=== PATIENT | female | born 1975 ===

== ENCOUNTER 2020-04-05 09:09 | Outpatient (REF) | payer OTHER, SELFPAY ==
--- NOTE | 2020-04-05 | MM_ITS ---
EXAMINATION: MM SCREENING DIGITAL BREAST TOMOSYNTHESIS, BILATERAL CLINICAL INFORMATION: Screening. Asymptomatic. The lifetime risk of breast cancer based on the Tyrer-Cuzick Model is 12%. COMPARISON: Outside 2D mammography images from [facility]: 02/27/2017 (bilateral), 11/22/2015 (right), 05/21/2015 (right). TECHNIQUE: Digital breast tomosynthesis is performed in both the craniocaudal and mediolateral oblique views along with computer-aided detection (CAD). Synthesized 2D images are generated from the tomosynthesis. Additional exaggerated left CC view is provided. FINDINGS: The breasts are heterogeneously dense, which may obscure small masses (ACR BI-RADS breast composition Category c). The right breast is unremarkable. There is no interval mass or architectural abnormality. Neither breast shows abnormal calcifications. The bilateral axilla and skin contours are unremarkable. The left breast has a 1.1 cm smooth mass posterior upper outer quadrant likely present on prior outside exam 2016 but better appreciated on current study with tomography. This may represent a cyst or fibroadenoma. Patient will be recalled for targeted ultrasound to fully characterize. MM/MM tomosynthesis screening BI IMPRESSION: 1. Left: Mass posterior upper outer left breast with smooth partly obscured margins, likely chronic, possibly cyst or fibroadenoma. 2. Right: No mammographic evidence of malignancy. ASSESSMENT: BI-RADS 0: Incomplete - Need Additional Imaging Evaluation RECOMMENDATION: 1. Targeted ultrasound left breast. 2. Radiology department staff will contact the patient for additional imaging. This patient's information was entered into a reminder system with a target due date for their next mammogram.
== END 2020-04-05 09:10 | disposition home or self-care (01) ==
LOC: HO.MAMMO 09:09
PROVIDERS: PCP Physician Assistant; Visit Provider Physician Assistant
DX: Z12.31 Encounter for screening mammogram for malignant neoplasm of breast (principal)
CPT/HCPCS: 77063; 77067

== ENCOUNTER 2020-04-17 09:01 | Outpatient (REF) | payer OTHER, SELFPAY ==
--- NOTE | 2020-04-17 09:05 | US_ITS ---
EXAMINATION: US DIAGNOSTIC ULTRASOUND BREAST, LEFT CLINICAL INFORMATION: Recall from screening for circumscribed mass posterior upper outer left breast likely chronic but better appreciated on recent exam with tomography. COMPARISON: Mammography 04/05/2020; outside 2D mammography 02/27/2017 ([facility]). TECHNIQUE: Ultrasound of the breast is performed with real-time baltazar scale imaging and color Doppler. Additional imaging also performed by radiologist. FINDINGS: There is a circumscribed macrolobulated mass corresponding to finding on mammography 2:00 position 7 cm from nipple measuring 1.1 x 0.7 x 0.5 cm. There is no increased or decreased through transmission of sound. In retrospect, finding is likely present on outside mammography 2017. This may represent a fibroadenoma. Follow-up in 6 months with targeted ultrasound is recommended to confirm stability. Results are discussed with the patient at time of visit. US/US breast LT limited IMPRESSION: Solid macrolobulated mass posterior upper outer left breast 1.1 cm, possibly fibroadenoma. In retrospect, finding likely present on outside mammography 2017. ASSESSMENT: BI-RADS 3: Probably Benign RECOMMENDATION: Targeted left breast ultrasound in 6 months. This patient's information was entered into a reminder system with a target due date for their next mammogram.
== END 2020-04-17 09:02 | disposition home or self-care (01) ==
LOC: HO.MAMMO 09:01
PROVIDERS: Visit Provider Physician Assistant
DX: N63.20 Unspecified lump in the left breast, unspecified quadrant (principal)
CPT/HCPCS: 76642

== ENCOUNTER 2020-10-14 08:53 | Outpatient (REF) | payer OTHER, SELFPAY ==
--- NOTE | ~2020-10-14 | US_ITS ---
EXAMINATION: US DIAGNOSTIC ULTRASOUND BREAST, RIGHT CLINICAL INFORMATION: Short interval six-month follow-up solid macrolobulated mass posterior upper outer left breast 1.1 cm, possibly fibroadenoma. TC score 12%. COMPARISON: Targeted ultrasound 04/17/2020, mammography 04/05/2020 and outside 2-D mammography 02/27/2017 ([facility]). TECHNIQUE: Ultrasound left breast is targeted to the upper outer quadrant. Grayscale imaging and color Doppler are performed without and with harmonics. FINDINGS: The macrolobulated mass is similar in size and contour and echogenicity to the prior ultrasound exam 04/17/2020. Measurements are approximately 0.9 x 0.8 x 0.5 cm. Prior measurements are 1.1 x 0.7 x 0.5 cm. The left mass will be reassessed with ultrasound at time of annual bilateral mammography, due within 6 months. Results are provided to the patient at time of visit by the technologist. US/US breast LT limited IMPRESSION: Stable macrolobulated mass posterior upper outer left breast similar to prior exam 04/05/2020. ASSESSMENT: BI-RADS 3: Probably Benign RECOMMENDATION: Targeted left breast ultrasound at time of annual bilateral mammography, due in 6 months. This patient's information was entered into a reminder system with a target due date for their next mammogram.
== END 2020-10-14 08:54 | disposition home or self-care (01) ==
LOC: HO.MAMMO 08:53
PROVIDERS: Visit Provider Physician Assistant
DX: R92.2 Inconclusive mammogram (principal)
CPT/HCPCS: 76642

== ENCOUNTER 2020-12-03 09:52 | Outpatient (REF) | payer OTHER, SELFPAY ==
[2020-12-03 10:25] LABS: Hemoglobin 14.4 g/dl (12.0-16.0); Mean Corpuscular HGB Conc 32.7 g/dl (31.0-35.0); Mean Corpuscular Hemoglobin 29.8 pg (27.0-33.0); Mean Corpuscular Volume 90.9 fL (80-98); Mean Platelet Volume 11.2 fL (9.4-12.3); Platelet Count 253 X10*3/uL (160-400); Red Blood Count 4.84 X10*6/uL (4.20-5.50); Red Cell Distribution Width 12.5 % (11.0-16.0); White Blood Count 7.6 X10*3/uL (4.8-10.8)
[2020-12-03 10:34] LABS: Estimated Average Glucose 105 mg/dL; Hemoglobin A1c % 5.3 %
[2020-12-03 10:51] LABS: Alanine Aminotransferase 31 U/L (0-31); Albumin Level 4.4 g/dL (3.5-5.0); Alkaline Phosphatase 70 U/L (39-117); Anion Gap 13 (12-20); Aspartate Amino Transferase 12 U/L (5-31); Bilirubin Total 1.4 mg/dL (0.0-1.0); Blood Urea Nitrogen 7 mg/dL (9-16); Calcium 9.5 mg/dL (8.4-10.2); Carbon Dioxide 25 mmol/L (22-29); Chloride 108 mmol/L (96-108); Estimated Glomerular Filt Rate > 60; Glucose Fasting 104 mg/dL (60-99); Potassium 4.5 mmol/L (3.3-5.1); Sodium 141 mmol/L (135-145); Total Protein 6.8 g/dL (6.5-8.0)
[2020-12-03 11:04] LABS: TSH reflex Free T4 0.68 uIU/mL (0.32-4.0)
== END 2020-12-03 09:53 | disposition home or self-care (01) ==
LOC: HO.LAB 09:52
PROVIDERS: PCP Physician Assistant; Visit Provider Physician Assistant
DX: Z13.29 Encounter for screening for other suspected endocrine disorder (principal); I10 Essential (primary) hypertension; R73.09 Other abnormal glucose
CPT/HCPCS: 36415; 80053; 83036; 84443; 85027

== ENCOUNTER 2021-04-07 10:28 | Outpatient (REF) | payer OTHER, SELFPAY ==
--- NOTE | ~2021-04-07 | MM_ITS ---
EXAMINATION: MM SCREENING DIGITAL BREAST TOMOSYNTHESIS, BILATERAL CLINICAL INFORMATION: Due for yearly. Probable fibroadenoma posterior upper outer left breast. Exam performed was performed as a screening. Follow-up targeted left breast ultrasound scheduled another day. The lifetime risk of breast cancer based on the Tyrer-Cuzick Model is 8%. COMPARISON: Mammography: 04/05/2020, outside mammography 02/27/2017 ([facility]). TECHNIQUE: Digital breast tomosynthesis is performed in both the craniocaudal and mediolateral oblique views along with computer-aided detection (CAD). Synthesized 2D images are generated from the tomosynthesis. FINDINGS: The breasts are heterogeneously dense, which may obscure small masses (ACR BI-RADS breast composition Category c). Parenchymal pattern is similar to prior exams. There is no developing density, interval mass, architectural abnormality. No abnormal calcifications. No significant changes. Skin contours are smooth. MM/MM tomosynthesis screening BI IMPRESSION: No significant changes from prior exams. ASSESSMENT: BI-RADS 2: Benign RECOMMENDATION: 1. Patient due for follow up targeted left breast ultrasound, appointment scheduled another day. 2. Bilateral mammography in 12 months. This patient's information was entered into a reminder system with a target due date for their next mammogram.
== END 2021-04-07 10:29 | disposition home or self-care (01) ==
LOC: HO.MAMMO 10:28
PROVIDERS: PCP Physician Assistant; Visit Provider Physician Assistant
DX: Z12.31 Encounter for screening mammogram for malignant neoplasm of breast (principal)
CPT/HCPCS: 77063; 77067

== ENCOUNTER 2021-04-10 07:56 | Outpatient (REF) | payer OTHER, SELFPAY ==
--- NOTE | ~2021-04-10 | US_ITS ---
EXAMINATION: US DIAGNOSTIC ULTRASOUND BREAST, LEFT CLINICAL INFORMATION: Probable fibroadenoma posterior upper outer left breast for follow-up surveillance. Age 45. TC score 8%. COMPARISON: Ultrasound 10/14/2020, 04/17/2020, mammography 04/07/2021, 04/05/2020 (BI-RADS 0). TECHNIQUE: Ultrasound left breast is targeted to the upper outer quadrant. Grayscale imaging and color Doppler are performed without and with harmonics. FINDINGS: The circumscribed nodule 2:00 position 7 cm from nipple shows no interval growth. Current measurements are 0.8 x 0.6 x 0.4 cm. Prior measurements 0.9 x 0.8 x 0.5 cm on ultrasound 10/14/2020 and 1.1 x 0.7 x 0.5 cm on ultrasound 04/17/2020. Finding will be reassessed with ultrasound at next bilateral mammography appointment due in 12 months to conclude long-term surveillance. Results are provided to the patient at time of visit by the technologist. US/US breast LT limited IMPRESSION: Probable fibroadenoma upper outer left breast stable to slightly decreased. ASSESSMENT: BI-RADS 3: Probably Benign RECOMMENDATION: Diagnostic left ultrasound at time of next bilateral mammography, due in 12 months. This patient's information was entered into a reminder system with a target due date for their next mammogram.
== END 2021-04-10 07:57 | disposition home or self-care (01) ==
LOC: HO.MAMMO 07:56
PROVIDERS: Visit Provider Physician Assistant
DX: R92.2 Inconclusive mammogram (principal)
CPT/HCPCS: 76642

== ENCOUNTER 2021-12-06 08:54 | Outpatient (REF) | payer OTHER, SELFPAY ==
[2021-12-06 09:30] LABS: Hematocrit 43.3 % (37.0-47.0); Hemoglobin 14.1 g/dl (12.0-16.0); Mean Corpuscular HGB Conc 32.6 g/dl (31.0-35.0); Mean Corpuscular Hemoglobin 28.9 pg (27.0-33.0); Mean Corpuscular Volume 88.7 fL (80.0-98.0); Mean Platelet Volume 11.3 fL (9.4-12.3); Platelet Count 272 X10*3/uL (160-400); Red Blood Count 4.88 X10*6/uL (4.20-5.50); Red Cell Distribution Width 12.8 % (11.0-16.0); White Blood Count 7.7 X10*3/uL (4.8-10.8)
[2021-12-06 09:48] LABS: Alanine Aminotransferase 23 U/L (0-31); Albumin Level 4.3 g/dL (3.5-5.0); Alkaline Phosphatase 62 U/L (39-117); Anion Gap 14 (12-20); Aspartate Amino Transferase 12 U/L (5-31); Bilirubin Total 2.1 mg/dL (0.0-1.0); Blood Urea Nitrogen 7 mg/dL (9-16); Calcium 8.7 mg/dL (8.4-10.2); Carbon Dioxide 20 mmol/L (22-29); Chloride 110 mmol/L (96-108); Estimated Glomerular Filt Rate > 60; Glucose Fasting 101 mg/dL (60-99); Potassium 4.2 mmol/L (3.3-5.1); Sodium 140 mmol/L (135-145); Total Protein 6.6 g/dL (6.5-8.0)
== END 2021-12-06 08:55 | disposition home or self-care (01) ==
LOC: HO.LAB 08:54
PROVIDERS: PCP Physician Assistant; Visit Provider Physician Assistant
DX: Z13.29 Encounter for screening for other suspected endocrine disorder (principal); R73.09 Other abnormal glucose
CPT/HCPCS: 36415; 80053; 84443; 85027

== ENCOUNTER → 2022-01-06 08:59 | Outpatient (BNVA) | payer OTHER, SELFPAY | PROVIDERS: PCP Physician Assistant; Referring Provider Physician Assistant; Visit Provider Physician Assistant | DX: Z01.818 Encounter for other preprocedural examination (principal); K62.5 Hemorrhage of anus and rectum; Z80.0 Family history of malignant neoplasm of digestive organs | CPT/HCPCS: 99202; 99212 ==

== ENCOUNTER 2022-04-09 13:57 | Outpatient (REF) | payer OTHER, SELFPAY ==
--- NOTE | ~2022-04-09 | MM_ITS ---
EXAMINATION: MM DIAGNOSTIC DIGITAL BREAST TOMOSYNTHESIS, BILATERAL US DIAGNOSTIC ULTRASOUND BREAST, LEFT CLINICAL INFORMATION: Due for yearly. Also follow-up probable fibroadenoma posterior upper outer left breast. The lifetime risk of breast cancer based on the Tyrer-Cuzick Model is 9%. COMPARISON: Mammography: 04/07/2021, 04/05/2020 (BI-RADS 0), outside mammography 02/27/2017 ([facility]); targeted left breast ultrasound 04/17/2020 (BI-RADS 3), 10/14/2020, 04/10/2021. TECHNIQUE: Digital breast tomosynthesis is performed in both the craniocaudal and mediolateral oblique views along with computer-aided detection (CAD). Synthesized 2D images are generated from the tomosynthesis. Ultrasound left breast is targeted to the upper outer quadrant using grayscale imaging and color Doppler without and with harmonics. FINDINGS: The breasts are heterogeneously dense, which may obscure small masses (ACR BI-RADS breast composition Category c). The parenchymal pattern is similar to prior studies. There is no developing density or interval architectural abnormality. No abnormal calcifications. Subtle nodular asymmetry posterior upper outer breast in area of suspected fibroadenoma is stable since 2019 and likely present on remote outside exam 2016. The axilla are unremarkable. The skin contours are smooth. Ultrasound demonstrates circumscribed macrolobulated nodule upper outer quadrant similar in size and contour and echogenicity to prior studies. No significant changes from multiple prior exams. Finding is now considered to be benign. Results are discussed with the patient at time of visit. MM/MM tomosynthesis diagnostic BI IMPRESSION: -No mammographic evidence of malignancy. 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 ASSESSMENT: BI-RADS 2: Benign RECOMMENDATION: Routine annual mammography screening. This patient's information was entered into a reminder system with a target due date for their next mammogram.
== END 2022-04-09 13:58 | disposition home or self-care (01) ==
LOC: HO.MAMMO 13:57
PROVIDERS: Visit Provider Physician Assistant
DX: R92.2 Inconclusive mammogram (principal)
CPT/HCPCS: 76642; 77062; 77066

== ENCOUNTER 2022-12-14 07:52 | Outpatient (AMB) | payer SELFPAY ==
[2022-12-14 08:06] VITALS: BP 102/68; PULSE 83; O2SAT 98; BMI 26.4
--- NOTE | 2022-12-14 08:06 | MHC.PC.OV ---
Vital Signs 12/14/22 08:06 Height 5 ft 1 in Weight 140 lb BMI 26.4 BP 102/68 Blood Pressure Location Rt brachial Position Sitting Pulse 83 Pulse Source Pulse Oximeter Pulse Oximetry (%) 98 Oxygen Delivery Method Room Air Intake Visit Reasons: PE Allergies cefazolin [From ANCEF] Allergy (Intermediate, Verified 12/14/22 08:18) HIVES codeine [CODEINE] Allergy (Intermediate, Verified 12/14/22 08:18) SWELLING Cephalosporins Allergy (Unknown, Verified 12/14/22 08:18) yolanda fluticasone [From Flovent Diskus] Adverse Reaction (Mild, Verified 12/14/22 08:18) oral thrush Medication List - Last Reconciled 12/14/22 by Aditya Daniels PA-C albuterol sulfate 90 mcg/actuation 1 puff PO Q4H PRN 30 days bisacodyl (Dulcolax (bisacodyl)) 10 mg (2 x 5 mg) PO ONCE 1 day fluticasone propionate 110 mcg/actuation (Flovent HFA) 1 puff inhalation BID 30 days polyethylene glycol 3350 (Miralax) 238 grams PO ONCE 1 day Tobacco use date assessed: 12/14/22 Dental Screening Dental Screen Date: 12/14/22 Did you have a dental visit in the last 12 months?: No Did you have a dental problem in the last 6 months where you did not have access to dental care?: No Was dental information given to patient?: No HPI PE HPI Details Patient is a 47 year female here today for annual physical.? Patient has a past medical history significant for asthma, depression. Mild persistent asthma: Has been fairly well controlled with p.r.n. use of albuterol inhaler and daily use of Flovent. She reports some exacerbation in her asthma during the spring season..? Also has stopped using singular due to his rebound affect. 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 .. VAccine: UTD COVID Vac, up-to-date with Tdap. .. Mammogram:? Diagnostic mammogram done in March 2022 Colorectal cancer screening: She is due for colonoscopy has had initial visit with GI Laboratory Tests 12/03/20 12/03/20 12/03/20 10:05 10:05 10:05 RBC 4.84 Creatinine 0.87 Fasting Glucose 104 H Hemoglobin A1c % 5.3 12/06/21 12/06/21 09:05 09:05 RBC 4.88 Creatinine 0.78 Fasting Glucose 101 H Hemoglobin A1c % ?? PFSH Surgical History History of section History of cholecystectomy History of endometrial ablation History of partial hysterectomy History of tubal ligation Family History Father Esophageal cancer Mother Hypertension Maternal Aunt Breast cancer Family/Other Breast cancer Colon cancer Sister Mental health disorder Substance use disorder Social History (Updated 12/14/22 @ 08:25 by Aditya Daniels PA-C) Housing: House Alcohol intake: never Patient Tobacco Use Status: Never used Tobacco e-Cigarette/Vaping Use: Never Used Current occupational status: employed Current occupation: [employer]- [employer] Cognitive needs: No Hearing needs: No Vision needs: No Questionnaire PHQ-9 Over the last 2 weeks, how often have you been bothered by any of the following problems? 1. Little interest or pleasure in doing things: not at all 2. Feeling down, depressed, or hopeless: not at all 3. Trouble falling or staying asleep, or sleeping too much: not at all 4. Feeling tired or having little energy: not at all 5. Poor appetite or overeating: not at all 6. Feeling bad about yourself - or that you are a failure or have let yourself or your family down: not at all 7. Trouble concentrating on things, such as reading the newspaper or watching television: not at all 8. Moving or speaking so slowly that other people could have noticed. Or the opposite - being so fidgety or restless that you have been moving around a lot more than usual: not at all 9. Thoughts that you would be better off or of hurting yourself in some way: not at all Total score: 0 Depression Screening Interpretation: Negative 05405 - PHQ-9 Billing: Yes Source: Developed by Drs. Tulio Goodwin, Senait Rucker, Job Marroquin and colleagues, with an educational neha from [employer]. Thrive Questionnaire Date Thrive assessed: 12/14/22 I am a: Patient What is your living situation today?: I have a steady place to live Within the past 12 months, did the food you bought not last and you didn't have the money to get more?: Never true Within the past 12 months, did you worry whether your food would run out before you got money to buy more?: Never true Do you have trouble paying for medicines?: No Do you have trouble getting transportation to medical appointments?: No Do you have trouble paying your heating and electricity bill?: No Do you have trouble taking care of your child, family member or friend?: No Do you have trouble with day-to-day activities such as bathing, preparing meals, shopping, managing finances, etc.?: No Are you currently unemployed and looking for a job?: No Are you interested in more education?: No Currently or been in a relationship where the following occur: no concerns reported AUDIT C Alcohol Use Questionnaire (AUDIT-C) 1. How often do you have a drink containing alcohol?: Never 3. How often do you have six or more drinks on one occasion?: Never Total Score: 0 MADHAV-7 AMB Questionnaire MADHAV-7 Date MADHAV - 7 assessed: 12/14/22 Feeling nervous, anxious, or on edge: 0 = Not at all Not being able to stop or control worryin = Not at all Worrying too much about different things: 0 = Not at all Trouble relaxin = Not at all Being so restless that it is hard to sit still: 0 = Not at all Becoming easily annoyed or irritable: 0 = Not at all Feeling afraid as if something awful might happen: 0 = Not at all Total MADHAV-7 score (0-4 normal; 5-9 mild; 10-14 moderate; 15-21 severe): 0 Source: Developed by Drs. Tulio Goodwin, Senait Rucker, Job Marroquin and colleagues, with an educational neha from [employer]. MADHAV-7 Assessment Billing MADHAV-7 Assessment Tool: MADHAV-7 Assessment 57667 ACT Questionnaire In the past 4 weeks, how much of the time did your asthma keep you from getting as much done at work, school or at home?: None of the time During the past 4 weeks, how often have you had shortness of breath?: 1-2 times a week During the past 4 weeks, how often did your asthma symptoms wake you up at night or earlier than usual in the morning?: Not at all During the past 4 weeks, how often have you had to use your rescue inhaler or nebulizer medication?: Not at all How would you rate your asthma control during the past 4 weeks?: Completely controlled ACT Interpretation: Negative Score: 24 Review of Systems Const Denies body aches, Denies chills, Denies excessive sweating, Denies fatigue, Denies fever(s) and Denies headache(s) Eyes Denies blurry vision ENT Denies dysphagia, Denies vertigo, Denies dizziness, Denies headache(s), Denies hearing loss and Denies tinnitus Card Denies chest pain, Denies chest pain with activity, Denies syncope, Denies irregular heart rhythm and Denies dyspnea Resp Denies chest congestion, Denies cough, Denies hemoptysis, Denies dyspnea and Denies wheezing GI Denies abdominal pain, Denies melena, Denies hematochezia, Denies coffee ground emesis, Denies dysphagia, Denies diarrhea, Denies nausea and Denies vomiting Denies urinary frequency, Denies dysuria, Denies urinary hesitancy and Denies urinary urgency Musc Denies arthralgias, Denies limited range of motion, Denies muscle cramps and Denies muscle weakness Skin/Breast Denies rash and Denies skin ulcer Neuro Denies Abnormal speech present, Denies confusion, Denies vertigo, Denies dizziness, Denies syncope, Denies headache(s), Denies memory loss and Denies seizure-like activity Psych Denies anxiety, Denies confusion, Denies depression, Denies memory loss, Denies panic attacks and Denies paranoia Endo Denies excessive sweating, Denies fatigue, Denies flushing, Denies polydipsia and Denies polyuria Aller/Immun Denies wheezing Physical exam (Primary Care) Vital Signs: Last Vital Signs Pulse 83 12/14/22 08:06 BP 102/68 12/14/22 08:06 Pulse Ox 98 12/14/22 08:06 Oxygen Delivery Method Room Air 12/14/22 08:06 BMI result Body Mass Index 26.4 Tobacco/Smoking Status: Tobacco use Status Tobacco use date assessed 12/14/22 12/14/22 08:15 Patient Tobacco Use Status Never used Tobacco 12/14/22 08:15 e-Cigarette/Vaping Use Never Used 12/14/22 08:15 PHQ-9: PHQ-9 Score PHQ-9: Total score 0 12/14/22 08:15 Depression Screening Interpretation: Negative Thrive Assessment: Date of Thrive Assessment Date Thrive assessed 12/14/22 12/14/22 08:15 Currently or been in a relationship where the following occur: no concerns reported Const General: cooperative, comfortable, no acute distress, alert and awake; No confusion Orientation/consciousness: oriented to person, oriented to place, patient oriented x3 and No confusion HENMT Head: Yes normocephalic Ears: external ears normal and TM's normal bilaterally Face and sinus: No sinus tenderness Mouth: Normal oral and palatal mucosa present and tongue normal Teeth and gingiva: dentition normal and gingiva normal Throat: Yes posterior oropharynx normal, Yes tonsils normal and Yes uvula midline Eyes Conjunctivae: conjunctivae normal Sclerae: sclerae normal Pupils: Equal, round and reactive pupils present EOM: EOMs intact bilaterally Direct Ophthalmoscopy: No no photophobia Neck Neck: Yes no lymphadenopathy, No tender and Yes no JVD Thyroid: Thyroid normal Carotids: no bruits Chest Chest palpation & inspection: no tenderness Resp Effort & Inspection: normal respiratory effort, no audible wheezes, not labored and no stridor Auscultation: no crackles, no rales, no rhonchi and no wheezes Cardio Jugular venous distension: no JVD Rate: regular rate, not bradycardic and not tachycardic Rhythm: regular rhythm Bruits: no carotid bruits Peripheral pulses: Peripheral pulses 2+ throughout GI Inspection: Yes normal to inspection, No abdominal wall ecchymosis and No visible herniation Palpation (GI): Soft to palpation, nontender, no guarding, not rigid and No hepatosplenomegaly present Auscultation: normoactive bowel sounds General: Yes no CVA tenderness Back/Spine/Pelvis Back: no CVA tenderness and No back tenderness Cervical Spine: cervical ROM normal Thoracic/Lumbar Spine: thoracic and lumbar spine normal to inspection, straight leg raise negative bilaterally, No thoraco-lumbar ROM limited and No lumbar spinal tenderness Skin Lesions: no lesions Rashes: no rashes Wounds: no wounds Neuro General: oriented to person, oriented to place, patient oriented x3, CN's II-XI intact bilaterally and No confusion Cranial nerves: Yes Equal, round and reactive pupils present and Yes Normal accommodation reflex present Cognition (Neuro): normal cognition Speech: No Abnormal speech present Gait exam (Neuro): Normal gait present Motor exam (neuro): 5/5 motor strength present throughout Extrem Right upper extremity: full ROM; no cyanosis Left upper extremity: full ROM; no cyanosis Right lower extremity: no edema Left lower extremity: no edema Psych Appearance: grossly normal Mental Status: mental status grossly normal Affect: normal affect Attitude: cooperative Thought process: Normal thought process present Assessment and Plan Assessment & Plan (1) Annual physical exam: Code(s): Z00.00 - Encounter for general adult medical examination without abnormal findings (2) Impaired glucose metabolism: Code(s): R73.09 - Other abnormal glucose Plan: Patient continues to have slightly elevated fasting blood sugar. Will continue work on lifestyle modifications to reduce sugar and carbohydrates in her diet. (3) Colon cancer screening: Comment: Index screening colonoscopy with Code(s): Z12.11 - Encounter for screening for malignant neoplasm of colon Plan: Need for colon cancer screening. Awaiting scheduling (4) Asthma: Code(s): J45.909 - Unspecified asthma, uncomplicated Qualifiers: Asthma severity: mild Asthma persistence: intermittent Asthma complication type: uncomplicated Qualified Code(s): J45.20 - Mild intermittent asthma, uncomplicated Plan: Patient's asthma has been fairly well controlled with p.r.n. use of her albuterol inhaler and daily use of her Flovent. Did have trouble with her asthma in the spring and increased her use of albuterol inhaler to time. Otherwise denies any asthma exacerbations or nighttime awakenings with asthma symptoms recently. Orders: Orders Comprehensive [place]. Panel Fast Today R73.09 - Other abnormal glucose Medications: Refilled albuterol sulfate 90 mcg/actuation 1 puff PO Q4H 30 days PRN 8.5 grams 3RF shortness of breath or wheezing J45.20 - Mild intermittent asthma, uncomplicated fluticasone propionate 110 mcg/actuation (Flovent HFA) 1 puff inhalation BID 30 days 12 grams 3RF J45.20 - Mild intermittent asthma, uncomplicated Coding Level of Care Code Est Pt Prev Care 40-64y(75162) Diagnoses Annual physical exam Z00.00 Impaired glucose metabolism R73.09 Colon cancer screening Z12.11 Asthma J45.20 Asthma severity: mild Asthma persistence: intermittent Asthma complication type: uncomplicated Additional Codes MADHAV-7 Assessment Billing - MADHAV-7 Assessment Tool: MADHAV-7 Assessment [id number] ([id number])
== END 2022-12-14 08:43 | disposition home or self-care (01) ==
PROVIDERS: PCP Physician Assistant; Visit Provider Physician Assistant
DX: Z00.00 Encounter for general adult medical examination without abnormal findings (principal); R73.09 Other abnormal glucose; Z12.11 Encounter for screening for malignant neoplasm of colon; J45.20 Mild intermittent asthma, uncomplicated
CPT/HCPCS: 99396

== ENCOUNTER 2023-01-16 07:35 | Outpatient (REF) | payer OTHER, SELFPAY ==
[2023-01-16 09:01] LABS: Alanine Aminotransferase 14 U/L (0-31); Albumin Level 4.4 g/dL (3.5-5.0); Alkaline Phosphatase 62 U/L (39-117); Anion Gap 14 (12-20); Aspartate Amino Transferase 13 U/L (5-31); Bilirubin Total 1.3 mg/dL (0.0-1.0); Blood Urea Nitrogen 8 mg/dL (9-16); Calcium 9.4 mg/dL (8.4-10.2); Carbon Dioxide 23 mmol/L (22-29); Chloride 108 mmol/L (96-108); Estimated Glomerular Filt Rate > 60; Glucose Fasting 108 mg/dL (60-99); Sodium 141 mmol/L (135-145); Total Protein 7.1 g/dL (6.5-8.0)
== END 2023-01-16 07:36 | disposition home or self-care (01) ==
LOC: HO.LAB 07:35
PROVIDERS: PCP Physician Assistant; Visit Provider Physician Assistant
DX: R73.09 Other abnormal glucose (principal)
CPT/HCPCS: 36415; 80053

== ENCOUNTER 2023-03-02 11:02 | Day surgery (SDC) | payer OTHER, SELFPAY ==
[2023-02-26 10:34] VITALS: BMI 26.4
--- NOTE | 2023-03-01 09:13 | HO.ANESPROP2 ---
HPI - Anesthesia Eval Consult details Narrative: 47yo F for Upper Endoscopy and Colonoscopy PMFSH Active Problems Active Problems: All Active Problems (Updated 01/06/22 @ 10:35 by Tashia Pedroza PA-C) Family history of GI tract cancer (Acute) Colon cancer screening (Acute) Cervical cancer screening (Acute) Screening for hypothyroidism (Acute) Annual physical exam (Acute) Screening for hypothyroidism (Acute) Asthma (Acute) Peripheral neuropathy (Acute) Impaired glucose metabolism (Acute) Past Medical History Medical History Asthma Peripheral neuropathy Family History Family History Father Esophageal cancer Mother Hypertension Maternal Aunt Breast cancer Family/Other Breast cancer Colon cancer Sister Mental health disorder Substance use disorder Surgical History Surgical History (Updated 03/09/23 @ 10:18 by Katelynn Coy) History of esophagogastroduodenoscopy (EGD) Hx of colonoscopy History of tubal ligation History of cholecystectomy History of endometrial ablation History of partial hysterectomy History of section Social History Social History Housing: House Alcohol intake: never Patient Tobacco Use Status: Former Tobacco user Tobacco use type: Cigarette e-Cigarette/Vaping Use: Never Used Current occupational status: employed Current occupation: [employer] Cognitive needs: No Hearing needs: No Vision needs: No Meds Allergies Allergy/AdvReac Type Severity Reaction Status Date / Time cefazolin [From ANCEF] Allergy Intermediate HIVES Verified 12/14/22 08:18 codeine [CODEINE] Allergy Intermediate SWELLING Verified 12/14/22 08:18 Cephalosporins Allergy Unknown yolanda Verified 12/14/22 08:18 fluticasone AdvReac Mild oral thrush Verified 12/14/22 08:18 [From Flovent Diskus] Exam Exam Date and Time: March 01, 2023 0913 Height,Weight and Vital Signs: Height 5 ft 1 in Weight 63.503 kg Pertinent Lab Results Pertinent Lab Results: Laboratory Tests 12/06/21 01/16/23 09:05 07:59 WBC 7.7 Hgb 14.1 Hct 43.3 Plt Count 272 Sodium 141 Potassium 4.0 Chloride 108 Carbon Dioxide 23 BUN 8 L Creatinine 0.86 Assessment and Plan Assessment Anesthesia Assessment: Chart Reviewed
[2023-03-02 11:25] VITALS: BP 146/93; PULSE 94; RESP 16; TEMP 36.8; O2SAT 97
[2023-03-02] MEDS: Lactated Ringers 1,000 ML 100 ML IVCONT (11:35)
--- NOTE | 2023-03-02 11:50 | MHC.SHP ---
Pre-Procedural Eval Section A Date of Service: 03/02/23 Section B Chief Complaint: Fam hx of esophageal ca and screening for CRC Details of Present Illness: Surg hx History of section History of cholecystectomy History of endometrial ablation History of partial hysterectomy History of tubal ligation Relevant Family History (Specify if Yes): Yes Relevant Social History: None Present Medications: see Short Stay Collaborative assessment Medical History: No relevant PMH History of Previous Operations: Relevant previous surgery/procedure and date(s) Allergies: Allergies Allergy/AdvReac Type Severity Reaction Status Date / Time cefazolin [From ANCEF] Allergy Intermediate HIVES Verified 12/14/22 08:18 codeine [CODEINE] Allergy Intermediate SWELLING Verified 12/14/22 08:18 Cephalosporins Allergy Unknown yolanda Verified 12/14/22 08:18 fluticasone AdvReac Mild oral thrush Verified 12/14/22 08:18 [From Flovent Diskus] Review of Systems Review of Systems Comment: 10 point ROS negative Exam Exam Comment: Gen appear: No acute distress HEENT: no icterus Chest: No overt resp distress Abd: soft, nontender, nondistended Psych: Stable affect, answering questions appropriately Neuro: A/Ox3 noted to move all extremities spontaneously Ext: no peripheral edema Plan I have reviewed the history and physical and performed a pertinent physical examination on my patient. No changes have occurred unless specified. Time Spent With Patient Time: Total time managing care of this patient today ____ minutes.
--- NOTE | 2023-03-02 12:26 | P.CONAN_ITS ---
[facility] Active Problems Active Problems: All Active Problems (Updated 03/01/23 @ 09:14 by Xin Naylor NP) Family history of GI tract cancer (Acute) Colon cancer screening (Acute) Cervical cancer screening (Acute) Screening for hypothyroidism (Acute) Annual physical exam (Acute) Screening for hypothyroidism (Acute) Impaired glucose metabolism (Acute) Past Medical History Medical History Asthma Peripheral neuropathy Patient : No Family History Family History Father Esophageal cancer Mother Hypertension Maternal Aunt Breast cancer Family/Other Breast cancer Colon cancer Sister Mental health disorder Substance use disorder Surgical History Surgical History History of tubal ligation History of cholecystectomy History of endometrial ablation History of partial hysterectomy History of section Social History Social History Housing: House Alcohol intake: never Patient Tobacco Use Status: Former Tobacco user Tobacco use type: Cigarette e-Cigarette/Vaping Use: Never Used Use of substances other than those prescribed or required for medical reasons: No Are you DNR?: No Advance Directives: No Advance Directives Information Provided: Yes Current occupational status: employed Current occupation: [employer] Cognitive needs: No Hearing needs: No Vision needs: No Meds Allergies Allergy/AdvReac Type Severity Reaction Status Date / Time cefazolin [From ANCEF] Allergy Intermediate HIVES Verified 12/14/22 08:18 codeine [CODEINE] Allergy Intermediate SWELLING Verified 12/14/22 08:18 Cephalosporins Allergy Unknown yolanda Verified 12/14/22 08:18 fluticasone AdvReac Mild oral thrush Verified 12/14/22 08:18 [From Flovent Diskus] Active Medications: Current Medications Albuterol Sulfate (Albuterol Sulfate (0.083%) 2.5 Mg/3 Ml Vial.Neb) 2.5 mg INHALE ONCE PRN PRN Reason: Shortness of Breath/Wheezing Lactated Ringer's (Lr) 1,000 mls @ 100 mls/hr IVCONT .Q10H JENNIFER Last Admin: 03/02/23 11:35 Dose: 100 mls/hr Exam Exam Date and Time: March 02, 2023 1226 Height,Weight and Vital Signs: Height 5 ft 1 in Weight 63.503 kg Last Vital Signs Temp 98.2 F 03/02/23 11:25 Pulse 94 03/02/23 11:25 Resp 16 03/02/23 11:25 BP 146/93 H 03/02/23 11:25 Pulse Ox 97 03/02/23 11:25 O2 Del Method Room Air 03/02/23 11:25 Airway Mallampati Class: II TM Dist: >3cm Neck ROM: Full Heart: RRR Lungs: CTA Assessment and Plan Assessment Anesthesia Assessment: Anesthesia Plan Discussed Final Anesthetic Review ASA Class: II Final Preanesthetic Review: Meds/Allgs Chart Reviewed, Consent Obtained/Reviewed and Anes Risks/Benef Reviewed Patient Risk: Low Procedure Risk: Low Anesthetic Plan Anesthetic Plan: MAC: Disposition: Standard PACU
--- NOTE | 2023-03-02 13:11 | P.OP_ITS ---
Operative Note Operative Note Date of Service: 03/02/23 Narrative: Procedure:?Esophagogastroduodenoscopy and colonoscopy Endoscopist:?Janene Coronel MD Indication:?Family hx of esophageal ca, and CRC screening Anesthesia Provider:?Keturah Ramires CRNA Anesthesia Type:?MAC Instrument:?Olympus GIF-H190, PCF-H190L EGD Procedure:?? The procedure, indications, preparation and potential complications were reviewed with the patient who indicated understanding and gave written informed consent to proceed. A physical exam was performed. The endoscope was introduced through the mouth, and advanced to the second part of duodenum. The mucosa was carefully examined on slow withdrawal of the endoscope. There were no immediate complications. Patient tolerated the procedure well. EGD Findings:? * Esophagus:? Normal esophageal mucosa was noted. The Z line is at 40 cm. * Stomach:? Normal gastric mucosa was noted. Retroflexion performed in the fundus. * Duodenum:? Normal duodenal mucosa noted to the extent examined. Colonoscopy Procedure:? The patient was then turned for the colonoscopy. A digital rectal exam was performed which was normal.? A distal attachment cap was affixed to the tip of the scope and the colonoscope was then inserted through the anus and advanced through the colon to the cecum at 75 cm and terminal ileum. Appendiceal orifice and ileocecal valve were identified. Mucosa was carefully examined under high definition white light as the instrument was slowly withdrawn in a retrograde panoramic fashion. Retroflexion was performed in rectum. The procedure was mildly difficult due to looping in sigmoid colon which required some left lower quadrant lift to intubate the hepatic flexure. There were no immediate obvious complications. The quality of the prep was BBPS: 2+2+2 = adequate Withdrawal time: 13 minutes Limitations: No limitation. Findings: Mucosa: Normal mucosa to cecum and terminal ileum. Protruding lesions: * 1 sessile polyp of size 5 mm in ascending colon. Cold snare polypectomy was performed. The polyp was completely removed and retrieved. * Medium internal hemorrhoids without stigmata of recent bleeding. Excavated lesions: * Scattered diverticulosis of sigmoid colon. Impression: 1. Normal esophagus 2. Normal stomach 3. Normal duodenum 4. Normal colon and terminal ileum mucosa 5. 1 polyp removed 6. Internal hemorrhoids 7. Diverticulosis Recommendations:?? * Await pathology results. * Due to prep quality, recommend repeat colonoscopy in 5 years regardless of the path
[2023-03-02 13:13] VITALS: BP 103/75; PULSE 80; RESP 16; TEMP 36.9; O2SAT 99
[2023-03-02 13:28] VITALS: BP 114/78; PULSE 71; RESP 16; TEMP 36.9; O2SAT 99
--- NOTE | 2023-03-02 13:48 | HO.POSTANES ---
Post Anesthesia Evaluation Post Anesthesia Evaluation Date of Service: 03/02/23 Vital Signs: Vital Signs Temp Pulse Resp BP Pulse Ox O2 Del Method 03/02/23 13:28 98.5 F 71 16 114/78 99 Room Air 03/02/23 13:13 98.5 F 80 16 103/75 99 Room Air 03/02/23 11:25 98.2 F 94 16 146/93 H 97 Room Air Anesthesia: Monitored Mental Status: Awake Pain Control: Satisfactory Nausea/Vomiting: None Hydration: Adequate Anesthesia-Related Issues: No Anes. Related Issues
== END 2023-03-02 14:26 | disposition home or self-care (01) ==
PROVIDERS: PCP Physician Assistant; Visit Provider Internal Medicine
PROC: (CPT 43235; principal; 2023-03-02 12:00)
DX: Z12.11 Encounter for screening for malignant neoplasm of colon (principal); D12.2 Benign neoplasm of ascending colon; K56.2 Volvulus; K57.30 Diverticulosis of large intestine without perforation or abscess without bleeding; K64.8 Other hemorrhoids; Z80.0 Family history of malignant neoplasm of digestive organs; J45.909 Unspecified asthma, uncomplicated; G62.9 Polyneuropathy, unspecified; Z79.899 Other long term (current) drug therapy
CPT/HCPCS: 43235; 45385; 88305

== ENCOUNTER → 2023-03-02 11:02 | Outpatient (BNV) | payer OTHER, SELFPAY | PROVIDERS: PCP Physician Assistant; Visit Provider Internal Medicine | DX: Z12.11 Encounter for screening for malignant neoplasm of colon (principal); Z80.0 Family history of malignant neoplasm of digestive organs; K63.5 Polyp of colon; K57.30 Diverticulosis of large intestine without perforation or abscess without bleeding | CPT/HCPCS: 43239; 45385 ==

== ENCOUNTER 2023-03-29 07:24 | Outpatient (AMB) | payer OTHER, SELFPAY ==
--- NOTE | 2023-03-29 07:33 | A.OFFVIS_ITS ---
Intake Vital Signs 03/29/23 07:35 Height 5 ft 1 in Weight 137 lb BMI 25.9 BP 125/73 Blood Pressure Location Lt brachial Position Sitting Pulse 89 Intake Visit Reasons: follow up Intake Note: Patient follow up for EGD/Colonoscopy screening. Patient cc: constipation. Denies any other GI issues. [employer] Required: No Accompanied by: Self / Same As Patient Allergies cefazolin [From ANCEF] Allergy (Intermediate, Verified 03/29/23 07:32) HIVES codeine [CODEINE] Allergy (Intermediate, Verified 03/29/23 07:32) SWELLING Cephalosporins Allergy (Unknown, Verified 03/29/23 07:32) yolanda fluticasone [From Flovent Diskus] Adverse Reaction (Mild, Verified 03/29/23 07:32) oral thrush Medication List - Last Reconciled 03/29/23 by Tashia Pedroza PA-C albuterol sulfate 90 mcg/actuation 1 puff PO Q4H PRN 30 days budesonide 180 mcg/actuation (Pulmicort Flexhaler) 1 inh inhalation BID 30 days HPI HPI Comments History of Present Illness Details A 47 y/o female family history of GI cancers follows up after recent EGD and colonoscopy presents today with chronic constipation. She tolerated procedures fairly well. She did have period of time that she had epigastric discomfort however that has completely resolved to this point. We reviewed procedure report, pathology and recommendations She does complain of chronic constipation she has tried stool softeners, maintaining high-fiber diet as well as MiraLax-she is well you uses a laxative type tea has not been successful she has bloating. Miralax NOT helpful- this certainly is frustrating for her. Appetite is good No other GI or general complete No nausea, vomiting, hematemesis, hematochezia fever chills PFSH Medical History (Updated 03/29/23 @ 10:23 by Tashia Pedroza PA-C) Asthma Peripheral neuropathy Surgical History History of esophagogastroduodenoscopy (EGD) Hx of colonoscopy History of tubal ligation History of cholecystectomy History of endometrial ablation History of partial hysterectomy History of section Family History Father Esophageal cancer Mother Hypertension Maternal Aunt Breast cancer Family/Other Breast cancer Colon cancer Sister Mental health disorder Substance use disorder Social History Housing: House Alcohol intake: never Patient Tobacco Use Status: Former Tobacco user Tobacco use type: Cigarette e-Cigarette/Vaping Use: Never Used Current occupational status: employed Current occupation: [employer] Cognitive needs: No Hearing needs: No Vision needs: No Review of Systems Const All systems reviewed & are unremarkable except as noted in HPI and below GI Reports constipation Physical Exam Vital Signs: Last Vital Signs Pulse 89 03/29/23 07:35 BP 125/73 03/29/23 07:35 BMI result Body Mass Index 25.9 Const General: cooperative, healthy appearing, comfortable and no acute distress Orientation/consciousness: patient oriented x3 Limitations: no limitations Eyes Sclerae: sclerae normal Resp Effort & Inspection: normal respiratory effort and able to speak in complete sentences Skin General skin exam: no rashes or lesions noted Neuro General: patient oriented x3 Extrem General: Yes full ROM Psych Appearance: grossly normal and well kempt Mental Status: mental status grossly normal Speech and movement: Normal speech and movement present and Clear speech present Affect: normal affect Attitude: cooperative Thought process: Normal thought process present Thought content: Normal thought content present Insight: Good insight present (Psych) Judgement: Good judgement present (Psych) Results Reviewed Results Reviewed: Findings: Mucosa: Normal mucosa to cecum and terminal ileum. Protruding lesions: * 1 sessile polyp of size 5 mm in ascending colon. Cold snare polypectomy was performed. The polyp was completely removed and retrieved. * Medium internal hemorrhoids without stigmata of recent bleeding. Excavated lesions: * Scattered diverticulosis of sigmoid colon. Impression: 1. Normal esophagus 2. Normal stomach 3. Normal duodenum 4. Normal colon and terminal ileum mucosa 5. 1 polyp removed 6. Internal hemorrhoids 7. Diverticulosis Recommendations:?? * Await pathology results. * Due to prep quality, recommend repeat colonoscopy in 5 years regardless of the path Findings: Mucosa: Normal mucosa to cecum and terminal ileum. Protruding lesions: * 1 sessile polyp of size 5 mm in ascending colon. Cold snare polypectomy was performed. The polyp was completely removed and retrieved. * Medium internal hemorrhoids without stigmata of recent bleeding. Excavated lesions: * Scattered diverticulosis of sigmoid colon. Impression: 1. Normal esophagus 2. Normal stomach 3. Normal duodenum 4. Normal colon and terminal ileum mucosa 5. 1 polyp removed 6. Internal hemorrhoids 7. Diverticulosis Recommendations:?? * Await pathology results. * Due to prep quality, recommend repeat colonoscopy in 5 years regardless of the path Findings: Mucosa: Normal mucosa to cecum and terminal ileum. Protruding lesions: * 1 sessile polyp of size 5 mm in ascending colon. Cold snare polypectomy was performed. The polyp was completely removed and retrieved. * Medium internal hemorrhoids without stigmata of recent bleeding. Excavated lesions: * Scattered diverticulosis of sigmoid colon. Name: Kindra Locke Age/Sex: 47/F Attending: Janene Coronel MD : 1975 Submitted by: Janene Coronel MD Copies to: Aditya Daniels PA-C MR #: [id number] Status: [facility] Collected: 03/02/23 Location: [facility] Received: 03/02/23 Diagnosis Colon, ascending, polyp: Sessile serrated lesion/polyp without dysplasia. Clinical History Pre-Op Dx: Encounter for screening for malignant neoplasm of colon Post-Op Dx: Normal EGD, diverticulosis, polyp, hemorrhoids Microscopic Description Microscopic sections reviewed. Material Received Ascending colon polyp Gross Description Received in formalin labeled ?ascending colon polyp? are multiple glistening, semitranslucent, soft, talamantes irregular and rectangular tissue fragments ranging from minute to 0.3 cm in greatest dimension which are submitted in toto in a single cassette labeled A. CEDS Copies To Aditya Daniels PA-C [address] [place] [address] [address] [place] [address] Janene Coronel MD [address] [place] [address], [address] [place] [address] [email or web address] NOTE: Unless otherwise stated, all tissue is formalin-fixed and paraffin-embedded. Some or all of the immunohistochemical tests reported herein may have been developed and their performance characteristics determined by [facility]. They have not been cleared or approved by the U.S. Food and Drug Administration (FDA). However, the FDA has determined that such clearance or approval is not necessary. This laboratory is certified under the Clinical Laboratory Improvement Amendments of 1988 (CLIA) as qualified to perform high complexity clinical laboratory testing. Patient: Kindra Locke Age/Sex: 47/F MR#: [id number] Page 1 of 2 Assessment & Plan Assessment & Plan (1) Sessile serrated polyp of colon: Comment: Very pleasant 47-year-old female family history of GI cancer Repeat asymptomatic colonoscopy 5 years All first-degree relatives should begin screening by age 40 Code(s): D12.6 - Benign neoplasm of colon, unspecified Plan: 5 year All FDR- by age 40 (2) Chronic idiopathic constipation: Comment: Reviewed history constipation unsuccessful with OTC, Reviewed colonoscopy Will give trial to Linzess Code(s): K59.04 - Chronic idiopathic constipation Plan: Linzess 145mcg (3) Diverticulosis of colon: Code(s): K57.30 - Diverticulosis of large intestine without perforation or abscess without bleeding Plan: Maintain high-fiber diet ER protocol reviewed Plan 5 year asymptomatic colonoscopy Maintain high-fiber diet Will give trial to Linzess-she will call with progress ER protocol reviewed for diverticulosis/diverticulitis Medications: New linaclotide (Linzess) 145 mcg PO DAILY 30 caps 3RF Patient Instructions: 5 year asymptomatic colonoscopy Maintain high-fiber diet Will give trial to Linzess-she will call with progress ER protocol reviewed for diverticulosis/diverticulitis Encouraged to call with questions or concerns Appreciate the opportunity assist in the care this pleasant patient Coding Level of Care Code Est Pt Level 3 (11510) Diagnoses Sessile serrated polyp of colon D12.6 Chronic idiopathic constipation K59.04 Diverticulosis of colon K57.30 Time Spent (min) 30
[2023-03-29 07:35] VITALS: BP 125/73; PULSE 89; BMI 25.9
== END 2023-03-29 08:38 | disposition home or self-care (01) ==
PROVIDERS: PCP Physician Assistant; Visit Provider Physician Assistant
DX: D12.6 Benign neoplasm of colon, unspecified (principal); K59.04 Chronic idiopathic constipation; K57.30 Diverticulosis of large intestine without perforation or abscess without bleeding
CPT/HCPCS: 99213

== ENCOUNTER → 2023-03-29 07:24 | Outpatient (BNVA) | payer OTHER, SELFPAY | PROVIDERS: PCP Physician Assistant; Visit Provider Physician Assistant ==

== ENCOUNTER 2023-08-24 07:08 | Outpatient (REF) | payer OTHER, SELFPAY ==
--- NOTE | ~2023-08-24 | XR_ITS ---
EXAMINATION: XR FOOT, RIGHT CLINICAL INFORMATION: Right foot injury COMPARISON: None available. TECHNIQUE: AP, lateral, and oblique views of the right foot. FINDINGS: The bones and soft tissues are normal. No fracture. Alignment is anatomic. Joint spaces are maintained. XR/XR foot RT 2V IMPRESSION: No abnormal findings
== END 2023-08-24 07:09 | disposition home or self-care (01) ==
LOC: HO.XRAY 07:08
PROVIDERS: PCP Physician Assistant; Visit Provider Physician Assistant
DX: S99.921A Unspecified injury of right foot, initial encounter (principal)
CPT/HCPCS: 73620

== ENCOUNTER 2023-12-16 07:56 | Outpatient (AMB) | payer OTHER, SELFPAY ==
[2023-12-16 08:03] VITALS: BP 108/72; PULSE 81; O2SAT 698; BMI 28.0
--- NOTE | 2023-12-16 08:03 | MHC.PC.OV ---
Vital Signs 12/16/23 08:03 Height 5 ft 1 in Weight 148 lb BMI 28.0 BP 108/72 Blood Pressure Location Lt brachial Position Sitting Pulse 81 Pulse Source Pulse Oximeter Pulse Oximetry (%) 698 H Oxygen Delivery Method Room Air Intake Visit Reasons: PE Allergies cefazolin [From ANCEF] Allergy (Intermediate, Verified 12/16/23 08:17) HIVES codeine [CODEINE] Allergy (Intermediate, Verified 12/16/23 08:17) SWELLING Cephalosporins Allergy (Unknown, Verified 12/16/23 08:17) yolanda fluticasone [From Flovent Diskus] Adverse Reaction (Mild, Verified 12/16/23 08:17) oral thrush Medication List - Last Reconciled 12/16/23 by Aditya Daniels PA-C albuterol sulfate 90 mcg/actuation 1 puff PO Q4H PRN 30 days budesonide 180 mcg/actuation (Pulmicort Flexhaler) 1 inh inhalation BID 30 days linaclotide (Linzess) 145 mcg PO DAILY Tobacco use date assessed: 12/16/23 Dental Screening Dental Screen Date: 12/16/23 Did you have a dental visit in the last 12 months?: No Did you have a dental problem in the last 6 months where you did not have access to dental care?: No Was dental information given to patient?: No HPI PE HPI Details Patient is a 48 year female here today for annual physical.? Patient has a past medical history significant for asthma, depression. Concern--> reports she has been having difficulty losing weight. She does reduce her calorie intake in his able to lose a small amount of weight though does not feel well when she does this. She also does admit to muscular lower back pain over the last several years. She does report an injury to her lower back while shoveling several years ago which has caused chronic pain in her lower back. PLAN: She is willing to see pain management for possible pain reduction modality. She is willing to get x-rays of her lower lumbar spine. Mild persistent asthma: Has been fairly well controlled with p.r.n. use of albuterol inhaler and daily use of Flovent. She reports some exacerbation in her asthma during the spring season..? Also has stopped using singular due to his rebound affect. [facility]: Need PAP and she promises to call [facility] for an appointment. .. VAccine: NINFA ERNST Vac, up-to-date with Tdap. .. Mammogram:? Diagnostic mammogram done in March 2022 -needs repeat mammogram Colorectal cancer screening: Colonoscopy done in 2022, sessile serrated polyp found, repeat 5 years due to poor prep. Laboratory Tests 12/03/20 12/03/20 12/03/20 10:05 10:05 10:05 RBC 4.84 Creatinine 0.87 Fasting Glucose 104 H Hemoglobin A1c % 5.3 12/06/21 12/06/21 09:05 09:05 RBC 4.88 Creatinine 0.78 Fasting Glucose 101 H Hemoglobin A1c % ?? PFSH Medical History Asthma Peripheral neuropathy Surgical History History of esophagogastroduodenoscopy (EGD) Hx of colonoscopy History of tubal ligation History of cholecystectomy History of endometrial ablation History of partial hysterectomy History of section Family History Father Esophageal cancer Mother Hypertension Maternal Aunt Breast cancer Family/Other Breast cancer Colon cancer Sister Mental health disorder Substance use disorder Social History Housing: House Alcohol intake: never Patient Tobacco Use Status: Former Tobacco user Tobacco use type: Cigarette e-Cigarette/Vaping Use: Never Used Second Hand Smoke Exposure: No Current occupational status: employed 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 1. Little interest or pleasure in doing things: not at all 2. Feeling down, depressed, or hopeless: not at all 3. Trouble falling or staying asleep, or sleeping too much: not at all 4. Feeling tired or having little energy: not at all 5. Poor appetite or overeating: not at all 6. Feeling bad about yourself - or that you are a failure or have let yourself or your family down: not at all 7. Trouble concentrating on things, such as reading the newspaper or watching television: not at all 8. Moving or speaking so slowly that other people could have noticed. Or the opposite - being so fidgety or restless that you have been moving around a lot more than usual: not at all 9. Thoughts that you would be better off or of hurting yourself in some way: not at all Total score: 0 Depression Screening Interpretation: Negative Depression Screening Done: Yes 31227 - PHQ-9 Billing: Yes Source: Developed by Drs. Tulio Goodwin, Senait Rucker, Job Marroquin and colleagues, with an educational neha from [employer]. Thrive Questionnaire Date Thrive assessed: 12/16/23 I am a: Patient What is your living situation today?: I have a steady place to live Within the past 12 months, did the food you bought not last and you didn't have the money to get more?: Never true Within the past 12 months, did you worry whether your food would run out before you got money to buy more?: Never true Do you have trouble paying for medicines?: No Do you have trouble getting transportation to medical appointments?: No Do you have trouble paying your heating and electricity bill?: No Do you have trouble taking care of your child, family member or friend?: No Do you have trouble with day-to-day activities such as bathing, preparing meals, shopping, managing finances, etc.?: No Are you currently unemployed and looking for a job?: No Are you interested in more education?: No Currently or been in a relationship where the following occur: No concerns reported THRIVE Score: 0 AUDIT C Alcohol Use Questionnaire (AUDIT-C) 1. How often do you have a drink containing alcohol?: Never 3. How often do you have six or more drinks on one occasion?: Never Total Score: 0 MADHAV-7 AMB Questionnaire MADHAV-7 Date MADHAV - 7 assessed: 12/16/23 Feeling nervous, anxious, or on edge: 1 = Several days Not being able to stop or control worryin = Not at all Worrying too much about different things: 0 = Not at all Trouble relaxin = Not at all Being so restless that it is hard to sit still: 0 = Not at all Becoming easily annoyed or irritable: 0 = Not at all Feeling afraid as if something awful might happen: 0 = Not at all Total MADHAV-7 score (0-4 normal; 5-9 mild; 10-14 moderate; 15-21 severe): 1 Source: Developed by Drs. Tulio Goodwin, Senait Rucker, Job Marroquin and colleagues, with an educational neha from [employer]. MADHAV-7 Assessment Billing MADHAV-7 Assessment Tool: MADHAV-7 Assessment 58286 ACT Questionnaire In the past 4 weeks, how much of the time did your asthma keep you from getting as much done at work, school or at home?: None of the time During the past 4 weeks, how often have you had shortness of breath?: 1-2 times a week During the past 4 weeks, how often did your asthma symptoms wake you up at night or earlier than usual in the morning?: Once or twice per week During the past 4 weeks, how often have you had to use your rescue inhaler or nebulizer medication?: Not at all How would you rate your asthma control during the past 4 weeks?: Well controlled ACT Interpretation: Negative Score: 22 Review of Systems Const Denies body aches, Denies chills, Denies excessive sweating, Denies fatigue, Denies fever(s) and Denies headache(s) Eyes Denies blurry vision ENT Denies dysphagia, Denies vertigo, Denies dizziness, Denies headache(s), Denies hearing loss and Denies tinnitus Card Denies chest pain, Denies chest pain with activity, Denies syncope, Denies irregular heart rhythm and Denies dyspnea Resp Denies chest congestion, Denies cough, Denies hemoptysis, Denies dyspnea and Denies wheezing GI Reports abdominal pain, Denies melena, Denies hematochezia, Denies coffee ground emesis, Denies dysphagia, Denies diarrhea, Denies nausea and Denies vomiting Denies urinary frequency, Denies dysuria, Denies urinary hesitancy and Denies urinary urgency Musc Reports back pain, Denies arthralgias, Denies limited range of motion, Denies muscle cramps and Denies muscle weakness Skin/Breast Denies rash and Denies skin ulcer Neuro Denies Abnormal speech present, Denies confusion, Denies vertigo, Denies dizziness, Denies syncope, Denies headache(s), Denies memory loss and Denies seizure-like activity Psych Denies anxiety, Denies confusion, Denies depression, Denies memory loss, Denies panic attacks and Denies paranoia Endo Denies excessive sweating, Denies fatigue, Denies flushing, Denies polydipsia and Denies polyuria Aller/Immun Denies wheezing Physical exam (Primary Care) Vital Signs: Oxygen Delivery Method Room Air 12/16/23 08:03 BMI result Body Mass Index 28.0 Tobacco/Smoking Status: Tobacco use Status Tobacco use date assessed 12/16/23 12/16/23 08:07 Patient Tobacco Use Status Former Tobacco user 12/16/23 08:07 Tobacco use type Cigarette 12/16/23 08:07 e-Cigarette/Vaping Use Never Used 12/16/23 08:07 PHQ-9: PHQ-9 Score PHQ-9: Total score 0 12/16/23 08:07 Depression Screening Interpretation: Negative Thrive Assessment: Date of Thrive Assessment Date Thrive assessed 12/16/23 12/16/23 08:07 Currently or been in a relationship where the following occur: No concerns reported Const General: cooperative, comfortable, no acute distress, alert and awake; No confusion Orientation/consciousness: oriented to person, oriented to place, patient oriented x3 and No confusion HENMT Head: Yes normocephalic Ears: external ears normal and TM's normal bilaterally Face and sinus: No sinus tenderness Mouth: Normal oral and palatal mucosa present and tongue normal Teeth and gingiva: dentition normal and gingiva normal Throat: Yes posterior oropharynx normal, Yes tonsils normal and Yes uvula midline Eyes Conjunctivae: conjunctivae normal Sclerae: sclerae normal Pupils: Equal, round and reactive pupils present EOM: EOMs intact bilaterally Direct Ophthalmoscopy: No no photophobia Neck Neck: Yes no lymphadenopathy, No tender and Yes no JVD Thyroid: Thyroid normal Carotids: no bruits Chest Chest palpation & inspection: no tenderness Resp Effort & Inspection: normal respiratory effort, no audible wheezes, not labored and no stridor Auscultation: no crackles, no rales, no rhonchi and no wheezes Cardio Jugular venous distension: no JVD Rate: regular rate, not bradycardic and not tachycardic Rhythm: regular rhythm Bruits: no carotid bruits Peripheral pulses: Peripheral pulses 2+ throughout GI Inspection: Yes normal to inspection, No abdominal wall ecchymosis and No visible herniation Palpation (GI): Soft to palpation, nontender, no guarding, not rigid and No hepatosplenomegaly present Auscultation: normoactive bowel sounds General: Yes no CVA tenderness Back/Spine/Pelvis Back: no CVA tenderness and No back tenderness Cervical Spine: cervical ROM normal Thoracic/Lumbar Spine: thoracic and lumbar spine normal to inspection, straight leg raise negative bilaterally, No thoraco-lumbar ROM limited and No lumbar spinal tenderness Skin Lesions: no lesions Rashes: no rashes Wounds: no wounds Neuro General: oriented to person, oriented to place, patient oriented x3, CN's II-XI intact bilaterally and No confusion Cranial nerves: Yes Equal, round and reactive pupils present and Yes Normal accommodation reflex present Cognition (Neuro): normal cognition Speech: No Abnormal speech present Gait exam (Neuro): Normal gait present Motor exam (neuro): 5/5 motor strength present throughout Extrem Right upper extremity: full ROM; no cyanosis Left upper extremity: full ROM; no cyanosis Right lower extremity: no edema Left lower extremity: no edema Psych Appearance: grossly normal Mental Status: mental status grossly normal Affect: normal affect Attitude: cooperative Thought process: Normal thought process present Assessment and Plan Assessment & Plan (1) Annual physical exam: Code(s): Z00.00 - Encounter for general adult medical examination without abnormal findings (2) Impaired glucose metabolism: Code(s): R73.09 - Other abnormal glucose Plan: Patient continues to have slightly elevated fasting blood sugar. Will continue work on lifestyle modifications to reduce sugar and carbohydrates in her diet. (3) Asthma: Code(s): J45.909 - Unspecified asthma, uncomplicated Qualifiers: Asthma severity: mild Asthma persistence: intermittent Asthma complication type: uncomplicated Qualified Code(s): J45.20 - Mild intermittent asthma, uncomplicated Plan: Patient's asthma has been fairly well controlled with p.r.n. use of her albuterol inhaler and daily use of her Flovent. Did have trouble with her asthma in the spring and increased her use of albuterol inhaler to time. Otherwise denies any asthma exacerbations or nighttime awakenings with asthma symptoms recently. (4) Myofascial pain syndrome of lumbar spine: Code(s): M79.18 - Myalgia, other site Plan: As per HPI patient seems to have a myofascial type pain in her lower lumbar spine which limits her ability to be physically active. She is willing to see pain management for pain reduction modality. (5) Breast cancer screening: Code(s): Z12.39 - Encounter for other screening for malignant neoplasm of breast Qualifiers: Breast cancer screening modality: mammogram Qualified Code(s): Z12.31 - Encounter for screening mammogram for malignant neoplasm of breast Orders: Orders Complete Blood Count no Diff Today R73.09 - Other abnormal glucose Hemoglobin A1c Today R73.09 - Other abnormal glucose Comprehensive [place]. Panel Fast Today R73.09 - Other abnormal glucose XR lumbar spine 4V min Today M79.18 - Myalgia, other site MM screening mammo BI Today Z12.31 - Encounter for screening mammogram for malignant neoplasm of breast Referrals Pain Management Referral M79.18 - Myalgia, other site Medications: Refilled albuterol sulfate 90 mcg/actuation 1 puff PO Q4H 30 days PRN 8.5 grams 3RF shortness of breath or wheezing J45.20 - Mild intermittent asthma, uncomplicated budesonide 180 mcg/actuation (Pulmicort Flexhaler) 1 inh inhalation BID 30 days 1 ea 3RF J45.20 - Mild intermittent asthma, uncomplicated Coding Level of Care Code Est Pt Prev Care 40-64y(09255) Diagnoses Annual physical exam Z00.00 Impaired glucose metabolism R73.09 Mild intermittent asthma without complication J45.20 Asthma severity: mild Asthma persistence: intermittent Asthma complication type: uncomplicated Myofascial pain syndrome of lumbar spine M79.18 Encounter for screening mammogram for malignant neoplasm of breast Z12.31 Breast cancer screening modality: mammogram Additional Codes MADHAV-7 Assessment Billing - MADHAV-7 Assessment Tool: MADHAV-7 Assessment 43474 ([id number])
== END 2023-12-16 08:37 | disposition home or self-care (01) ==
PROVIDERS: PCP Physician Assistant; Visit Provider Physician Assistant
DX: Z00.00 Encounter for general adult medical examination without abnormal findings (principal); R73.09 Other abnormal glucose; J45.20 Mild intermittent asthma, uncomplicated; M79.18 Myalgia, other site; Z12.31 Encounter for screening mammogram for malignant neoplasm of breast
CPT/HCPCS: 99396

== ENCOUNTER 2023-12-16 08:45 | Outpatient (REF) | payer OTHER, SELFPAY ==
--- NOTE | ~2023-12-16 | XR_ITS ---
EXAMINATION: XR LUMBAR SPINE CLINICAL INFORMATION: M79.18 - Myalgia, other site. COMPARISON: None available. TECHNIQUE: AP, lateral, and both oblique views of the lumbosacral spine. Dedicated lateral view of the lumbosacral junction. FINDINGS: Vertebral body heights are normal. No fracture or spondylolisthesis. Intervertebral disc heights are maintained without significant degenerative disc disease. Bone mineralization is normal. Cholecystectomy clips in the right upper quadrant. Minimal atherosclerotic calcification in the abdominal aorta. Soft tissues are otherwise unremarkable. Imaged portions of the sacroiliac joints are normal. XR/XR lumbar spine 4V min IMPRESSION: Lumbar spine appears relatively well preserved. No acute osseous findings or significant degenerative spondylosis. Electronically signed by: Ricardo Daugherty MD 01/09/2024 10:38 AM EDT
[2023-12-16 09:30] LABS: Hematocrit 46.3 % (37.0-47.0); Hemoglobin 15.1 g/dl (12.0-16.0); Mean Corpuscular HGB Conc 32.6 g/dl (31.0-35.0); Mean Corpuscular Hemoglobin 29.3 pg (27.0-33.0); Mean Corpuscular Volume 89.7 fL (80.0-98.0); Mean Platelet Volume 10.9 fL (9.4-12.3); Platelet Count 267 X10*3/uL (160-400); Red Blood Count 5.16 X10*6/uL (4.20-5.50); Red Cell Distribution Width 12.8 % (11.0-16.0); White Blood Count 8.7 X10*3/uL (4.8-10.8)
[2023-12-16 09:32] LABS: Estimated Average Glucose 108 mg/dL; Hemoglobin A1c % 5.4 % (<6.0)
[2023-12-16 09:58] LABS: Alanine Aminotransferase 22 U/L (0-31); Albumin Level 4.5 g/dL (3.5-5.0); Alkaline Phosphatase 64 U/L (39-117); Anion Gap 11 (12-20); Aspartate Amino Transferase 17 U/L (5-31); Bilirubin Total 1.7 mg/dL (0.0-1.0); Blood Urea Nitrogen 7 mg/dL (9-16); Calcium 9.5 mg/dL (8.4-10.2); Carbon Dioxide 26 mmol/L (22-29); Chloride 108 mmol/L (96-108); Estimated Glomerular Filt Rate > 60; Glucose Fasting 110 mg/dL (60-99); Potassium 3.8 mmol/L (3.3-5.1); Sodium 141 mmol/L (135-145); Total Protein 7.2 g/dL (6.5-8.0)
== END 2023-12-16 08:46 | disposition home or self-care (01) ==
LOC: HO.LAB 08:45
PROVIDERS: PCP Physician Assistant; Visit Provider Physician Assistant
DX: R73.09 Other abnormal glucose (principal); M79.18 Myalgia, other site
CPT/HCPCS: 36415; 72110; 80053; 83036; 85027

== ENCOUNTER 2023-12-24 08:05 | Outpatient (REF) | payer OTHER, SELFPAY ==
--- NOTE | ~2023-12-24 | MM_ITS ---
EXAMINATION: MM SCREENING DIGITAL BREAST TOMOSYNTHESIS, BILATERAL CLINICAL INFORMATION: Screening. Asymptomatic. COMPARISON: Mammography: Comparison is made with available priors TECHNIQUE: Digital breast tomosynthesis is performed in both the craniocaudal and mediolateral oblique views along with computer-aided detection (CAD). Synthesized 2D images are generated from the tomosynthesis. FINDINGS: The breasts are heterogeneously dense, which may obscure small masses (ACR BI-RADS breast composition Category c). Circumscribed oval mass upper outer left breast stable back to 2017. There are no significant masses, abnormal calcifications, or other abnormalities. MM/MM tomosynthesis screening BI IMPRESSION: No mammographic evidence of malignancy. ASSESSMENT: BI-RADS BI-RADS 2 - Benign Findings RECOMMENDATION: Routine annual mammography screening. 1 year F/U This examination should not preclude the clinical evaluation of a suspicious palpable abnormality. This patient's information was entered into a reminder system with a target due date for their next mammogram. Electronically signed by: Lelo Devine DO 01/14/2024 10:08 PM EDT
== END 2023-12-24 08:06 | disposition home or self-care (01) ==
LOC: HO.MAMMO 08:05
PROVIDERS: PCP Physician Assistant; Visit Provider Physician Assistant
DX: Z12.31 Encounter for screening mammogram for malignant neoplasm of breast (principal)
CPT/HCPCS: 77063; 77067

== ENCOUNTER → 2023-12-24 08:15 | Outpatient (BNV) | payer OTHER, SELFPAY | PROVIDERS: PCP Physician Assistant; Visit Provider Internal Medicine | DX: Z12.31 Encounter for screening mammogram for malignant neoplasm of breast (principal) | CPT/HCPCS: 77063; 77067 ==

== ENCOUNTER 2024-01-07 08:20 | Outpatient (AMB) | payer OTHER, SELFPAY ==
[2024-01-07 08:33] VITALS: BP 128/75; PULSE 86; O2SAT 97; BMI 28.2
--- NOTE | 2024-01-07 08:33 | MHC.OFFVIS ---
Vital Signs 01/07/24 08:33 Height 5 ft 1 in Weight 149 lb BMI 28.2 BP 128/75 Blood Pressure Location Rt brachial Position Sitting Pulse 86 Pulse Source Pulse Oximeter Pulse Oximetry (%) 97 Oxygen Delivery Method Room Air Intake Visit Reasons: Myalgia Allergies cefazolin [From ANCEF] Allergy (Intermediate, Verified 01/07/24 08:34) HIVES codeine [CODEINE] Allergy (Intermediate, Verified 01/07/24 08:34) SWELLING Cephalosporins Allergy (Unknown, Verified 01/07/24 08:34) yolanda fluticasone [From Flovent Diskus] Adverse Reaction (Mild, Verified 01/07/24 08:34) oral thrush Medication List - Last Reconciled 01/07/24 by Lizz Farmer albuterol sulfate 90 mcg/actuation 1 puff PO Q4H PRN 30 days budesonide 180 mcg/actuation (Pulmicort Flexhaler) 1 inh inhalation BID 30 days linaclotide (Linzess) 145 mcg PO DAILY HPI Comments Details: Kindra is a very pleasant 48-year-old female who presents the office today for evaluation and management of her chronic middle/lower back pain She has been suffering with this pain for approximately 8 years. Reports she was shoveling snow and ?threw her back out?. Was evaluated in the emergency room and diagnosed with muscle strain. Prescribed muscle relaxers at that time. Since then the pain has persisted though she is not sought treatment out until now. She has just been ?dealing with the pain Evaluated by PCP recently, x-rays ordered which has been performed though results are not available for review She takes Motrin as needed with some improvement though she tries to avoid medications if possible Topical medications do not provide any relief. No recent attempts at physical therapy, chiropractor or acupuncture. She has never had surgery or injections of her back States that there is a palpable swollen area where the pain is. This has been present since the injury 8 years ago. There has not been any investigations to find out what this swelling is. The area is tender to palpation and this is the source of her pain. Pain today is rated as a 3/10, constant, worse during the day in the evening In terms of muscle damage condition is described as aching, dull Pain is negatively impacting patient's enjoyment of life, general activity, mood, normal work, recreational activities, sleep and walking Denies implantable devices, pacemaker or defibrillator Denies current use of nicotine, tobacco, alcohol or illicit substances Denies current use of anticoagulants [facility] Medical History Asthma Peripheral neuropathy Surgical History History of esophagogastroduodenoscopy (EGD) Hx of colonoscopy History of tubal ligation History of cholecystectomy History of endometrial ablation History of partial hysterectomy History of section Family History Father Esophageal cancer Mother Hypertension Maternal Aunt Breast cancer Family/Other Breast cancer Colon cancer Sister Mental health disorder Substance use disorder Social History Housing: House Alcohol intake: never Patient Tobacco Use Status: Former Tobacco user Tobacco use type: Cigarette e-Cigarette/Vaping Use: Never Used Second Hand Smoke Exposure: No Current occupational status: employed 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 Answers questions appropriately. Fully engaged in examination. Skin: warm, dry, intact HEENT: Normocephalic. Hearing intact. Cardiac: External chest normal in appearance. Respiratory: No cough, audible wheezing or stridor. Abdomen: without gross distension. MS: No obvious swelling or deformities. Able to transition from sit to stand unassisted. Ambulates with bilaterally normal heel strike and toe off Tenderness to palpation middle back, just left of midline. Palpable, non-fluctuant lump approx [id number] without redness, drainage, skin changes, warmth that is tender to palpation at proximal border. SLR negative bilaterally Facet loading positive Neurological: Oriented to person, place, time and situation. Thought process intact. No gait abnormalities appreciated. Psychiatric: Appropriate mood and affect. Good judgment and insight. Results Reviewed Results Reviewed: X-ray lumbar spine 12/16/23: Results pending Assessment & Plan Assessment & Plan (1) Thoracic back pain: Code(s): M54.6 - Pain in thoracic spine Category: Medical (2) Lower back pain: Code(s): M54.50 - Low back pain, unspecified Category: Medical Plan MRI lumbar spine and thoracic spine ordered for evaluation, back pain greater than 6 months failed conservative therapy Order placed for PT eval and treat Continue with Tylenol, Motrin and icy hot as needed All questions and concerns were answered, patient agrees with the plan. Follow up after MRI, sooner if needed Orders: Orders PT Evaluation and Treatment Today M79.18 - Myalgia, other site MR lumbar spine wo con Today M54.50 - Low back pain, unspecified MR thoracic spine wo con Today M54.6 - Pain in thoracic spine Coding Level of Care Code New Pt Level 4 (65270) Complex EM visit Add On G2211 Diagnoses Thoracic back pain M54.6 Lower back pain M54.50
== END 2024-01-07 09:07 | disposition home or self-care (01) ==
PROVIDERS: PCP Physician Assistant; Visit Provider Registered Nurse Emergency
DX: M54.6 Pain in thoracic spine (principal); M54.50 Low back pain, unspecified
CPT/HCPCS: 99204

== ENCOUNTER → 2024-01-07 08:20 | Outpatient (BNVA) | payer OTHER, SELFPAY | PROVIDERS: PCP Physician Assistant; Visit Provider Registered Nurse Emergency ==

== ENCOUNTER → 2024-01-30 10:50 | Outpatient (BNV) | payer OTHER, SELFPAY | PROVIDERS: PCP Physician Assistant; Visit Provider Radiology Diagnostic Radiology | DX: M54.50 Low back pain, unspecified (principal) | CPT/HCPCS: 72146; 72148 ==

== ENCOUNTER 2024-01-30 10:51 | Outpatient (REF) | payer OTHER, SELFPAY ==
--- NOTE | ~2024-01-30 | MR_ITS ---
EXAMINATION: MR THORACIC SPINE WITHOUT CONTRAST CLINICAL INFORMATION: Difficulty walking COMPARISON: None available. TECHNIQUE: MRI of the thoracic spine was obtained using routine sequences without contrast. FINDINGS: Submitted for interpretation on February 29, 2024. No bone marrow STIR signal abnormality. Multilevel disc desiccation and marginal osteophyte formation more conspicuous at C5-6. There is normal alignment. The thoracic spinal cord signal is normal. There is a 1 mm hyperintense T2 signal within the center of the spinal cord at T10 level likely a congenital prominent spinal cord canal. T1-2: No cord compression. T2-3: No cord compression. T3-4: No cord compression. T4-5: No cord compression. T5-6: Left subarticular broad-based disc protrusion. No cord compression. T6-7: Left subarticular disc protrusion without cord compression. T7-8: No cord compression. T8-9: No cord compression. T9-10: No cord compression. T10-11: No cord compression. T11-12: No cord compression.. T12-L1: No cord compression. Conus medullaris ends at pedicle of L1 with normal signal. There is a 5 x 6 cm well-defined fat signal characteristic lesion in the midline and left para midline of the lower thoracic upper lumbar spine extending from T12 to L2. MR/MR thoracic spine wo con IMPRESSION: Multilevel spondylosis of with associated left subarticular broad-based disc rotation, T5-6, T6-7 without cord compression, edema and or myelopathy. Lipoma, posterior soft tissues, lower thoracic upper lumbar spine Electronically signed by: Israel Severino MD 02/29/2024 03:34 PM EST
--- NOTE | ~2024-01-30 | MR_ITS ---
EXAMINATION: MR LUMBAR SPINE WITHOUT CONTRAST CLINICAL INFORMATION: Low back pain. COMPARISON: None available. TECHNIQUE: MRI of the lumbar spine was obtained using routine sequences without contrast. FINDINGS: Last rib-bearing vertebra labeled T12. No bone marrow STIR signal abnormality. Disc desiccation, L4-5. The alignment is normal. Conus medullaris ends at pedicle of L1 with normal signal. There is a 6 mm fat signal characteristic lesion within the deep fat planes of the upper low back at T12/L2 level. T12-L1: No compression upon neural elements. L1-2: No compression upon neural elements. L2-3: No compression upon neural elements. L3-4: Broad-based disc bulging. Facet joint hypertrophy as well as ligamentum flavum. No compression upon neural elements. L4-5: Broad-based disc bulging. Facet joint and ligamentum flavum hypertrophy. Reduced AP diameter of the thecal sac and the neural foramina. L5-S1: No compression upon neural elements. No prevertebral compartment hematoma, mass or fluid collection. MR/MR lumbar spine wo con IMPRESSION: Multilevel lumbar spondylosis more conspicuous at L4-5 likely encroaching the exiting nerve roots. Lipoma, posterior upper lumbar fat planes. Electronically signed by: Israel Severino MD 02/29/2024 03:46 PM EST
== END 2024-01-30 10:52 | disposition home or self-care (01) ==
LOC: HO.MRI 10:51
PROVIDERS: PCP Physician Assistant; Visit Provider Registered Nurse Emergency
DX: M54.6 Pain in thoracic spine (principal); M54.50 Low back pain, unspecified
CPT/HCPCS: 72146; 72148

== ENCOUNTER 2024-02-28 13:00 | Outpatient (RCR) | payer OTHER, SELFPAY ==
--- NOTE | 2024-01-31 16:13 | MHC.PT.EP ---
[facility] [place] Office [place] [facility] [place] [facility] [address] [place] [address] [phone] F: [phone] F: [phone] F: [phone] F: [phone] Physical Therapy Plan of Care Date of Evaluation: 01/31/24 Date of Surgery: Diagnosis: LBP Assessment: Pt is a 48 y/o female who reports she pulled a muscle of her L midback about 8 years ago while shoveling and states she has been in pain since and is of late worsening reporting decreased tolerance for walking long distances, sitting for duration, traveling by car, and performing fitness activities as well as disturbed sleep secondary to decreased trunk ROM, palpable visible L sided spinal mass, decreased core and hip strength, L LE referred symptoms, and pain. Pt is deemed an appropriate candidate to receive skilled PT services to address their physical impairments in order to improve their functional ability. -- NOTE: Spinal MRI was performed yesterday though no imaging performed therapy to wait for imaging results for clarity. Frequency and Duration: The patient will be seen 2 x/ wk x 5 wks. Short Term Goals: initiate home program. Improve baseline pain to < 3/10; initial 4/10. Skilled Nursing Goals: I with home program. Pt will be able to tolerate sitting as long as she'd like given the choice of seat. Pt will report able to walk long distances with managed Sx. improve B hip abd strength by at least 1/2 MMT grade. Treatment Plan: Modalities to reduce pain, spasms and effusion. Manual therapy to restore motion and function. Therapeutic exercise to improve strength and flexibility. Neuromuscular re-education for posture and balance. Therapeutic activities to return to functional activities of daily living. Electronically signed by: Dionicio Herrera PT. Please sign and return to therapist. Thank you for your referral.
== END 2024-08-11 09:01 | disposition home or self-care (01) ==
LOC: HO.PT 13:00
PROVIDERS: PCP Physician Assistant; Visit Provider Registered Nurse Emergency
DX: M79.18 Myalgia, other site (principal)
CPT/HCPCS: 97014; 97110; 97140; 97161

== ENCOUNTER 2024-03-09 14:38 | Outpatient (AMB) | payer OTHER, SELFPAY ==
--- NOTE | 2024-03-09 14:43 | A.OFFVIS_ITS ---
Vital Signs 03/09/24 14:44 Height 5 ft 1 in Weight 154 lb 5.177 oz BMI 29.2 BP 125/78 Blood Pressure Location Rt brachial Position Sitting Pulse 107 H Pulse Source Pulse Oximeter Pulse Oximetry (%) 98 Oxygen Delivery Method Room Air Intake Visit Reasons: MRI Results FU Allergies cefazolin [From ANCEF] Allergy (Intermediate, Verified 03/09/24 14:44) HIVES codeine [CODEINE] Allergy (Intermediate, Verified 03/09/24 14:44) SWELLING Cephalosporins Allergy (Unknown, Verified 03/09/24 14:44) yolanda fluticasone [From Flovent Diskus] Adverse Reaction (Mild, Verified 03/09/24 14:44) oral thrush Medication List - Last Reconciled 03/09/24 by Lizz Farmer albuterol sulfate 90 mcg/actuation 1 puff PO Q4H PRN 30 days budesonide 180 mcg/actuation (Pulmicort Flexhaler) 1 inh inhalation BID 30 days linaclotide (Linzess) 145 mcg PO DAILY HPI Comments Details: Patient presents the office today for follow-up back pain MRI reviewed, results as per below Patient has been going to physical therapy without improvement of her symptoms Continues to report pain at the palpable lump to her left lower back Pain today is rated as 5/10 Denies new diagnoses, allergies, medications Intake visit: Kindra is a very pleasant 48-year-old female who presents the office today for evaluation and management of her chronic middle/lower back pain She has been suffering with this pain for approximately 8 years. Reports she was shoveling snow and ?threw her back out?. Was evaluated in the emergency room and diagnosed with muscle strain. Prescribed muscle relaxers at that time. Since then the pain has persisted though she is not sought treatment out until now. She has just been ?dealing with the pain Evaluated by PCP recently, x-rays ordered which has been performed though results are not available for review She takes Motrin as needed with some improvement though she tries to avoid medications if possible Topical medications do not provide any relief. No recent attempts at physical therapy, chiropractor or acupuncture. She has never had surgery or injections of her back States that there is a palpable swollen area where the pain is. This has been present since the injury 8 years ago. There has not been any investigations to find out what this swelling is. The area is tender to palpation and this is the source of her pain. Pain today is rated as a 3/10, constant, worse during the day in the evening In terms of muscle damage condition is described as aching, dull Pain is negatively impacting patient's enjoyment of life, general activity, mood, normal work, recreational activities, sleep and walking Denies implantable devices, pacemaker or defibrillator Denies current use of nicotine, tobacco, alcohol or illicit substances Denies current use of anticoagulants PFSH Medical History Asthma Peripheral neuropathy Surgical History History of esophagogastroduodenoscopy (EGD) Hx of colonoscopy History of tubal ligation History of cholecystectomy History of endometrial ablation History of partial hysterectomy History of section Family History Father Esophageal cancer Mother Hypertension Maternal Aunt Breast cancer Family/Other Breast cancer Colon cancer Sister Mental health disorder Substance use disorder Social History Housing: House Alcohol intake: never Patient Tobacco Use Status: Former Tobacco user Tobacco use type: Cigarette e-Cigarette/Vaping Use: Never Used Second Hand Smoke Exposure: No Current occupational status: employed Current occupation: [employer] Cognitive needs: No Hearing needs: No Vision needs: Yes Review of Systems Const All systems reviewed & are unremarkable except as noted in HPI and below Physical Exam Vital Signs: Last Vital Signs Pulse 107 H 03/09/24 14:44 BP 125/78 03/09/24 14:44 Pulse Ox 98 03/09/24 14:44 Oxygen Delivery Method Room Air 03/09/24 14:44 BMI result Body Mass Index 29.2 General: awake, alert, oriented. Answers questions appropriately. Fully engaged in examination. Skin: warm, dry, intact HEENT: Normocephalic. Hearing intact. Cardiac: External chest normal in appearance. Respiratory: No cough, audible wheezing or stridor. Abdomen: without gross distension. MS: Tenderness to palpation middle back, just left of midline. Palpable, non- fluctuant lump approx [id number] without redness, drainage, skin changes, warmth that is tender to palpation at proximal border. Neurological: Oriented to person, place, time and situation. Thought process intact. No gait abnormalities appreciated. Psychiatric: Appropriate mood and affect. Good judgment and insight. Results Reviewed Results Reviewed: 01/30/2024 MR/MR thoracic spine wo con Conus medullaris ends at pedicle of L1 with normal signal. There is a 5 x 6 cm well-defined fat signal characteristic lesion in the midline and left para midline of the lower thoracic upper lumbar spine extending from T12 to L2. IMPRESSION: Multilevel spondylosis of with associated left subarticular broad-based disc rotation, T5-6, T6-7 without cord compression, edema and or myelopathy. Lipoma, posterior soft tissues, lower thoracic upper lumbar spine 01/30/24 MR LS IMPRESSION: Multilevel lumbar spondylosis more conspicuous at L4-5 likely encroaching the exiting nerve roots. Lipoma, posterior upper lumbar fat planes. 12/16/23 XR/XR lumbar spine 4V min FINDINGS: Vertebral body heights are normal. No fracture or spondylolisthesis. Intervertebral disc heights are maintained without significant degenerative disc disease. Bone mineralization is normal. Cholecystectomy clips in the right upper quadrant. Minimal atherosclerotic calcification in the abdominal aorta. Soft tissues are otherwise unremarkable. Imaged portions of the sacroiliac joints are normal. IMPRESSION: Lumbar spine appears relatively well preserved. No acute osseous findings or significant degenerative spondylosis. Assessment & Plan Assessment & Plan (1) Lipoma of back: Code(s): D17.1 - Benign lipomatous neoplasm of skin and subcutaneous tissue of trunk Category: Medical (2) Thoracic back pain: Code(s): M54.6 - Pain in thoracic spine Category: Medical (3) Lower back pain: Code(s): M54.50 - Low back pain, unspecified Category: Medical Plan MRI reviewed, results as per above Referral placed for general surgery Continue with Tylenol, Motrin and icy hot as needed All questions and concerns were answered, patient agrees with the plan. Follow up in the office as needed Orders: Referrals General Surgery Referral D17.1 - Benign lipomatous neoplasm of skin and subcutaneous tissue of trunk Coding Level of Care Code Est Pt Level 3 (91085) Complex EM visit Add On G2211 Diagnoses Lipoma of back D17.1 Thoracic back pain M54.6 Lower back pain M54.50
[2024-03-09 14:44] VITALS: BP 125/78; PULSE 107; O2SAT 98; BMI 29.2
== END 2024-03-09 15:16 | disposition home or self-care (01) ==
PROVIDERS: PCP Physician Assistant; Visit Provider Registered Nurse Emergency
DX: D17.1 Benign lipomatous neoplasm of skin and subcutaneous tissue of trunk (principal); M54.6 Pain in thoracic spine; M54.50 Low back pain, unspecified
CPT/HCPCS: 99213

== ENCOUNTER → 2024-03-09 14:38 | Outpatient (BNVA) | payer OTHER, SELFPAY | PROVIDERS: PCP Physician Assistant; Visit Provider Registered Nurse Emergency ==

== ENCOUNTER 2024-03-21 12:55 | Outpatient (AMB) | payer OTHER, SELFPAY ==
--- NOTE | 2024-03-21 13:01 | A.OFFVIS_ITS ---
Vital Signs 03/21/24 13:08 Height 5 ft 1 in Weight 157 lb BMI 29.7 BP 133/86 Blood Pressure Location Rt brachial Position Sitting Pulse 73 Intake Visit Reasons: lipoma of the back Intake Note: Patient is seen in office for evaluation of a lipoma of the back. Present for 8yrs. Pt c/o: enlarging. Bothersome when lating on it. 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 She has had this many months time. His increasing in size, become more symptomatic. She would like to have it removed. He has no such lesions elsewhere. Patient has unrelated back issues which she was told or is related to disc issues. Chart was reviewed and patient evaluated [facility] Medical History (Updated 03/21/24 @ 13:08 by DREW Burgos) Ganglion cyst of dorsum of left wrist Asthma Peripheral neuropathy Surgical History (Updated 03/21/24 @ 13:46 by Jack Salazar MD) History of esophagogastroduodenoscopy (EGD) Hx of colonoscopy History of tubal ligation History of cholecystectomy History of endometrial ablation History of partial hysterectomy History of section Family History Father Esophageal cancer Mother Hypertension Maternal Aunt Breast cancer Family/Other Breast cancer Colon cancer Sister Mental health disorder Substance use disorder Social History Housing: House Alcohol intake: never Patient Tobacco Use Status: Former Tobacco user Tobacco use type: Cigarette e-Cigarette/Vaping Use: Never Used Second Hand Smoke Exposure: No Current occupational status: employed Current occupation: [employer] Cognitive needs: No Hearing needs: No Vision needs: Yes Physical Exam Vital Signs: Last Vital Signs Pulse 73 03/21/24 13:08 BP 133/86 03/21/24 13:08 BMI result Body Mass Index 29.7 Chest Other: Chest breath sounds bilaterally, HS 1 in 2 GI Other: Abdomen mildly corpulent, soft, benign Back/Spine/Pelvis Other: Patient has a lower mid back soft tissue mass measuring roughly 8 x 5 cm consistent with a large lipoma. Assessment & Plan Assessment & Plan (1) Lipoma of back: Code(s): D17.1 - Benign lipomatous neoplasm of skin and subcutaneous tissue of trunk Category: Surgical Plan Risks, benefits, alternatives of excision of mid back lipoma were reviewed with the patient and included but not limited to bleeding, infection, recurrence, numbness, pain, scarring, wound dehiscence, seroma formation and the patient wishes to proceed. All questions answered. Arrangements were made for this on a day which is convenient for her. Coding Level of Care Code New Pt Level 5 (17839) Diagnoses Lipoma of back D17.1
[2024-03-21 13:08] VITALS: BP 133/86; PULSE 73; BMI 29.7
== END 2024-03-21 13:16 | disposition home or self-care (01) ==
PROVIDERS: PCP Physician Assistant; Visit Provider Surgery
DX: D17.1 Benign lipomatous neoplasm of skin and subcutaneous tissue of trunk (principal)
CPT/HCPCS: 99204

== ENCOUNTER → 2024-03-21 12:55 | Outpatient (BNVA) | payer OTHER, SELFPAY | PROVIDERS: PCP Physician Assistant; Visit Provider Surgery ==

== ENCOUNTER 2024-04-13 07:51 | Day surgery (SDC) | payer OTHER, SELFPAY ==
[2024-04-11 11:20] VITALS: BMI 29.7
--- NOTE | 2024-04-12 08:24 | P.HPSUR_ITS ---
Pre-Procedural Eval Section A - 24 Hr Update-Section A only Date of Service: 04/13/24 The patient is an INPATIENT: No Changes since office visit: No Cold of Flu in the past 2 weeks, No New Medical Problems, No Changes in Medication and No Patient answered all questions Section B - Complete if H&P > 30 days Chief Complaint: Benign lipomatous neoplasm of skin and subcutaneou Allergies: Allergies Allergy/AdvReac Type Severity Reaction Status Date / Time cefazolin [From ANCEF] Allergy Intermediate HIVES Verified 03/21/24 13:06 codeine [CODEINE] Allergy Intermediate SWELLING Verified 03/21/24 13:06 Cephalosporins Allergy Unknown yolanda Verified 03/21/24 13:06 fluticasone AdvReac Mild oral thrush Verified 03/21/24 13:06 [From Flovent Diskus] Review of Systems Sugical H&P ROS: Negative: Constitution, Cardiovascular, Respiratory, Neurological, Psychiatric, Hem-Onc, Allergic/Immunologic, Gastrointestinal, Genitourinary, Musculoskeletal, Integumentary, Endocrine and Eyes/Ears/Nose/Throat Exam Surgical H&P Exam: Normal: HEENT, Normal: Heart, Normal: Lungs, Normal: Extre mities, Normal: Abdomen, Normal: Skin and Normal: Neurological Plan I have reviewed the history and physical and performed a pertinent physical examination on my patient. No changes have occurred unless specified. Time Spent With Patient Time: Total time managing care of this patient today ____ minutes.
--- NOTE | 2024-04-12 10:42 | HO.ANESPROP2 ---
Documented by User: Xin Naylor NP 04/12/24 10:43 HPI - Anesthesia Eval Consult details Narrative: 48yo F for Wide Local Excision Mid Back Large Lipoma PMFSH Active Problems Active Problems: All Active Problems Lipoma of back (Acute) Lipoma of back (Acute) Thoracic back pain (Acute) Lower back pain (Acute) Breast cancer screening (Acute) Myofascial pain syndrome of lumbar spine (Acute) Right foot injury (Acute) Diverticulosis of colon (Acute) Chronic idiopathic constipation (Acute) Sessile serrated polyp of colon (Acute) Family history of GI tract cancer (Acute) Colon cancer screening (Acute) Cervical cancer screening (Acute) Screening for hypothyroidism (Acute) Annual physical exam (Acute) Screening for hypothyroidism (Acute) Impaired glucose metabolism (Acute) Past Medical History Medical History Ganglion cyst of dorsum of left wrist Asthma Peripheral neuropathy Family History Family History Father Esophageal cancer Mother Hypertension Maternal Aunt Breast cancer Family/Other Breast cancer Colon cancer Sister Mental health disorder Substance use disorder Surgical History Surgical History History of esophagogastroduodenoscopy (EGD) Hx of colonoscopy History of tubal ligation History of cholecystectomy History of endometrial ablation History of partial hysterectomy History of section Social History Social History Housing: House Alcohol intake: never Patient Tobacco Use Status: Former Tobacco user Tobacco use type: Cigarette e-Cigarette/Vaping Use: Never Used Second Hand Smoke Exposure: No Have you been hit, kicked, punched, or otherwise hurt by someone within the past year? If so, by whom?: No Are you DNR?: No Advance Directives: No Advance Directives Information Provided: Yes Current occupational status: employed Current occupation: [employer] Cognitive needs: No Hearing needs: No Vision needs: Yes Meds Allergies Allergy/AdvReac Type Severity Reaction Status Date / Time cefazolin [From ANCEF] Allergy Intermediate HIVES Verified 03/21/24 13:06 codeine [CODEINE] Allergy Intermediate SWELLING Verified 03/21/24 13:06 Cephalosporins Allergy Unknown yolanda Verified 03/21/24 13:06 fluticasone AdvReac Mild oral thrush Verified 03/21/24 13:06 [From Flovent Diskus] Exam Height,Weight and Vital Signs: Height 5 ft 1 in Weight 71.214 kg Pertinent Lab Results Pertinent Lab Results: Laboratory Tests 12/16/23 09:04 WBC 8.7 Hgb 15.1 Hct 46.3 Plt Count 267 Sodium 141 Potassium 3.8 Chloride 108 Carbon Dioxide 26 BUN 7 L Creatinine 0.83 Assessment and Plan Assessment Anesthesia Assessment: Chart Reviewed Documented by User: Fernanda Collins MD 04/13/24 09:23 [facility] Past Medical History Medical History Ganglion cyst of dorsum of left wrist Asthma Peripheral neuropathy Family History Family History Father Esophageal cancer Mother Hypertension Maternal Aunt Breast cancer Family/Other Breast cancer Colon cancer Sister Mental health disorder Substance use disorder Family history of problems with anesthesia: No Surgical History Surgical History History of esophagogastroduodenoscopy (EGD) Hx of colonoscopy History of tubal ligation History of cholecystectomy History of endometrial ablation History of partial hysterectomy History of section History of Problems with Anesthesia: No Social History Social History Housing: House Alcohol intake: never Patient Tobacco Use Status: Former Tobacco user Tobacco use type: Cigarette e-Cigarette/Vaping Use: Never Used Second Hand Smoke Exposure: No Have you been hit, kicked, punched, or otherwise hurt by someone within the past year? If so, by whom?: No Are you DNR?: No Advance Directives: No Advance Directives Information Provided: Yes Current occupational status: employed Current occupation: [employer] Cognitive needs: No Hearing needs: No Vision needs: Yes Meds Allergies Allergy/AdvReac Type Severity Reaction Status Date / Time cefazolin [From ANCEF] Allergy Intermediate HIVES Verified 03/21/24 13:06 codeine [CODEINE] Allergy Intermediate SWELLING Verified 03/21/24 13:06 Cephalosporins Allergy Unknown yolanda Verified 03/21/24 13:06 fluticasone AdvReac Mild oral thrush Verified 03/21/24 13:06 [From Flovent Diskus] Exam Airway Mallampati Class: II TM Dist: >3cm Neck ROM: Full Heart: rrr Lungs: cta Assessment and Plan Assessment Anesthesia Assessment: Anesthesia Plan Discussed Final Anesthetic Review Family History of Problems with Anesthesia: No History of Problems with Anesthesia: No NPO: Yes ASA Class: II Final Preanesthetic Review: No Changes in Pt Med Stat, Meds/Allgs Chart Reviewed, Consent Obtained/Reviewed and Anes Risks/Benef Reviewed Patient Risk: Low Procedure Risk: Low Anesthetic Plan Anesthetic Plan: GA and MAC: Disposition: Standard PACU
[2024-04-13 08:01] VITALS: BP 126/79; PULSE 89; RESP 20; TEMP 36.3; O2SAT 97; BMI 30.1
[2024-04-13] MEDS: Lactated Ringers 1,000 ML 100 ML IVCONT (08:15)
--- NOTE | 2024-04-13 11:28 | P.OP_ITS ---
Operative Note Operative Note Date of Service: 04/13/24 Narrative: Preoperative diagnosis: [] Large symptomatic deep mid back lipoma Postop diagnosis: [] The same Procedure [] wide local excision deep mid back lipoma Surgeon: [] Martin Conservation Worker: [] Smooth Type of Anesthesia: [] MAC Indication for surgery: [] Final specimen measured roughly 9 x 5 cm consistent with a multilobulated back lipoma Findings: [] Patient brought to the operating room, placed on operative table supine position, after an adequate level of MAC anesthesia was induced, patient was placed in left lateral decubitus position. Mid back area was prepped and draped in usual sterile fashion using a transverse incision over the mass in question, this carried down through skin, subcutaneous tissue, were superior and inferior skin flaps were developed and circumferentially dissection down through the giant lipoma was performed with its sequential dissection from the surrounding soft tissue and muscle fascia undertaken using Bovie. Specimen sent to pathology. Wound was irrigated, secured hemostasis, and closed using interrupted inverted dermal 3-0 Vicryl sutures followed by Steri-Strips and sterile dressings. Wound was infiltrated the beginning at the end with 0.5% Marcaine/1% lidocaine. Sponge, needle, and instrument counts reported correct. Patient tolerated the procedure well and emerged from anesthesia stable condition. EBL minimal
[2024-04-13 11:38] VITALS: BP 102/89; PULSE 80; RESP 14; TEMP 36.4; O2SAT 96
[2024-04-13 11:58] VITALS: BP 106/73; PULSE 79; RESP 16; TEMP 36.4; O2SAT 98
== END 2024-04-13 12:51 | disposition home or self-care (01) ==
PROVIDERS: PCP Physician Assistant; Visit Provider Surgery
PROC: (CPT 21931; principal; 2024-04-13 11:00)
DX: D17.1 Benign lipomatous neoplasm of skin and subcutaneous tissue of trunk (principal); G62.9 Polyneuropathy, unspecified; M67.432 Ganglion, left wrist; J45.909 Unspecified asthma, uncomplicated; Z88.2 Allergy status to sulfonamides; Z88.8 Allergy status to other drugs, medicaments and biological substances; Z90.49 Acquired absence of other specified parts of digestive tract; Z98.890 Other specified postprocedural states; Z87.891 Personal history of nicotine dependence
CPT/HCPCS: 21931; 88304; J0131; J0736; J2003; J2371; J2704; J2795; J3010

== ENCOUNTER → 2024-04-13 07:51 | Outpatient (BNV) | payer OTHER, SELFPAY | PROVIDERS: PCP Physician Assistant; Visit Provider Surgery | DX: D17.1 Benign lipomatous neoplasm of skin and subcutaneous tissue of trunk (principal) | CPT/HCPCS: 21931 ==

== ENCOUNTER 2024-04-24 09:14 | Outpatient (AMB) | payer OTHER, SELFPAY ==
--- NOTE | 2024-04-24 09:16 | A.OFFVIS_ITS ---
Intake Visit Reasons: S/P WLE Lt. mid back Lg. lipoma Intake Note: Patient here s/p wide local excision deep mid back lipoma. Reports incision healing well. Patient c/o: reports site feels painful. Taking rx pain meds as needed. 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 Aside from incisional discomfort she has no other issues or complaints. Pathology is benign. [facility] Medical History Ganglion cyst of dorsum of left wrist Asthma Peripheral neuropathy Surgical History (Updated 04/24/24 @ 09:37 by Jack Salazar MD) Lipoma of back (04/13/24) History of esophagogastroduodenoscopy (EGD) Hx of colonoscopy History of tubal ligation History of cholecystectomy History of endometrial ablation History of partial hysterectomy History of section Family History Father Esophageal cancer Mother Hypertension Maternal Aunt Breast cancer Family/Other Breast cancer Colon cancer Sister Mental health disorder Substance use disorder Social History Housing: House Alcohol intake: never Patient Tobacco Use Status: Former Tobacco user Tobacco use type: Cigarette e-Cigarette/Vaping Use: Never Used Second Hand Smoke Exposure: No Current occupational status: employed Current occupation: [employer] Cognitive needs: No Hearing needs: No Vision needs: Yes Physical Exam Back/Spine/Pelvis Other: Incision clean dry and intact healing well Assessment & Plan Assessment & Plan (1) Encounter for postoperative wound check: Code(s): Z48.89 - Encounter for other specified surgical aftercare Category: Surgical Plan Patient was been given local instructions including avoiding strenuous ac tivities next few weeks time and will otherwise follow-up p.r.n.. All questions answered. Coding Level of Care Code Global (91998) Diagnoses Encounter for postoperative wound check Z48.89
== END 2024-04-24 09:27 | disposition home or self-care (01) ==
PROVIDERS: PCP Physician Assistant; Visit Provider Surgery
DX: Z48.89 Encounter for other specified surgical aftercare (principal)
CPT/HCPCS: 99024

== ENCOUNTER 2024-05-01 13:02 | Outpatient (AMB) | payer OTHER, SELFPAY ==
--- NOTE | 2024-05-01 13:08 | MHC.OFFVIS ---
Intake Visit Reasons: lipoma excision area leaking fluid Intake Note: Patient scheduled today's appointment concerned with excision site on mid back, oozing, painful. 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 WLE~ 04-13-2024 Manager Intelligence Required: No Accompanied by: Self / Same As Patient Allergies cefazolin [From ANCEF] Allergy (Intermediate, Verified 05/01/24 13:09) HIVES codeine [CODEINE] Allergy (Intermediate, Verified 05/01/24 13:09) SWELLING Cephalosporins Allergy (Unknown, Verified 05/01/24 13:09) yolanda fluticasone [From Flovent Diskus] Adverse Reaction (Mild, Verified 05/01/24 13:09) oral thrush HPI Comments Details: Patient presents for wound check. Status post left lower back lipoma excision. She said she has some clear drainage from the incision. She showed me pictures. At present this has resolved. [facility] Medical History Ganglion cyst of dorsum of left wrist Asthma Peripheral neuropathy Surgical History (Updated 05/01/24 @ 13:38 by Jack Salazar MD) Lipoma of back (04/13/24) History of esophagogastroduodenoscopy (EGD) Hx of colonoscopy History of tubal ligation History of cholecystectomy History of endometrial ablation History of partial hysterectomy History of section Family History Father Esophageal cancer Mother Hypertension Maternal Aunt Breast cancer Family/Other Breast cancer Colon cancer Sister Mental health disorder Substance use disorder Social History Housing: House Alcohol intake: never Patient Tobacco Use Status: Former Tobacco user Tobacco use type: Cigarette e-Cigarette/Vaping Use: Never Used Second Hand Smoke Exposure: No Current occupational status: employed Current occupation: [employer]- Advising Cognitive needs: No Hearing needs: No Vision needs: Yes Physical Exam Back/Spine/Pelvis Other: Incision clean dry and intact. No evidence of any infection or significant seroma. Assessment & Plan Assessment & Plan (1) Postop check: Code(s): Z09 - Encounter for follow-up examination after completed treatment for conditions other than malignant neoplasm Category: Surgical Plan Patient was reassured. At present time no intervention required. Patient should avoid strenuous activities. All questions answered. She has an old provided regarding light duty for work. Coding Level of Care Code Global (88135) Diagnoses Postop check Z09
== END 2024-05-01 13:27 | disposition home or self-care (01) ==
PROVIDERS: PCP Physician Assistant; Visit Provider Surgery
DX: Z09 Encounter for follow-up examination after completed treatment for conditions other than malignant neoplasm (principal)
CPT/HCPCS: 99024

== ENCOUNTER → 2024-05-01 13:02 | Outpatient (BNVA) | payer OTHER, SELFPAY | PROVIDERS: PCP Physician Assistant; Visit Provider Surgery ==

== ENCOUNTER 2024-12-26 07:48 | Outpatient (AMB) | payer OTHER, SELFPAY ==
[2024-12-26 07:52] VITALS: BP 114/78; PULSE 96; O2SAT 99; BMI 30.4
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
--- OUTSIDE RECORDS SUMMARY | 2024-12-26 07:52 | XMS_ITS | Patient Health Record ---
Author Organization [facility] Address [address] [place] [address] Care Team Providers Care Truck Spotter Name Role Phone Rola Sullivan CNM Primary Care Provider Fabiano Petra Mcdaniel Unavailable [phone] Allergies Allergen (clinical drug ingredient) Drug/Non Drug Allergy documented on EMR Reaction Allergy Type Onset Date Status codeine Codeine swelling Drug Allergy Active Latex rash Drug Allergy Active Reason For Referral No Information Medications Medication SIG (Take, Route, Frequency, Duration) Notes Start Date End Date Status Citalopram Hydrobromide 20 MG Orally Active VITAMIN D 50,000 IU ORAL Active miSOPROStol 200 MCG 2 tablets with food Orally night before procedure; Duration: 1 days 08/04/2016 Active Naratriptan HCl 1 MG Orally Active LORazepam 0.5 MG 1 tablet as needed Orally Active Social History Tobacco Use: Social History Observation Description Date Details (start date - stop date) Never Smoker NA - NA Tobacco Use/Smoking Question Answer Notes Are you a nonsmoker Alcohol Screen (Audit-C) Question Answer Notes Did you have a drink containing alcohol in the p ast year? No Points 0 Problems Problem Type SNOMED Code ICD Code Onset Dates Problem Status W/U Status Risk Notes Problem Endometrial hyperplasia (074972498) Endometrial hyperplasia, unspecified (N85.00) Active confirmed is being considered Problem Anxiety disorder (740758726) Anxiety disorder, unspecified (F41.9) Active confirmed Problem Status migrainosus (777061549) Migraine, unspecified, not intractable, with status migrainosus (G43.901) Active confirmed Plan Of Treatment No Information Insurance Providers Payer Name Payer Address Payer Phone Subscriber Number Group Number Insured Name Patient Relationship to Insured Coverage Start Date Coverage End Date [facility] [address] [place] [address] [phone] [id number] RADHA MCKENZIE Self - patient is the insured Medical (General) History Medical History History ICD Code Anxiety disorder, unspecified F41.9 Migraine, unspecified, not intractable, with status migrainosus G43.901 Endometrial hyperplasia, unspecified N85 .00 Surgical History Surgery Date(Month/Year) CHOLECYSTECTOMY SUPRACERVICAL HYSTERECTOMY (ovaries silvia in) 2006 ENDOMETRIAL ABLATION 2004 C SECTION
== END 2024-12-26 08:18 | disposition home or self-care (01) ==
LOC: HO.HMCH 07:49
PROVIDERS: PCP Physician Assistant; Visit Provider Physician Assistant
DX: Z00.00 Encounter for general adult medical examination without abnormal findings (principal); R73.09 Other abnormal glucose; E66.811 Obesity, class 1; Z68.30 Body mass index [BMI] 30.0-30.9, adult; J45.20 Mild intermittent asthma, uncomplicated

== ENCOUNTER 2024-12-26 07:48 | Outpatient (REF) | payer OTHER, SELFPAY ==
[2024-12-26 09:13] LABS: Hematocrit 44.7 % (37.0-47.0); Hemoglobin 14.7 g/dl (12.0-16.0); Mean Corpuscular HGB Conc 32.9 g/dl (31.0-35.0); Mean Corpuscular Hemoglobin 29.1 pg (27.0-33.0); Mean Corpuscular Volume 88.3 fL (80.0-98.0); NRBC Abs Auto 0.000 X10*3/uL (0.0-0.012); NRBC Pct Auto 0.0 /100WBC (0.0-0.2); Platelet Count 273 X10*3/uL (160-400); Red Blood Count 5.06 X10*6/uL (4.20-5.50); White Blood Count 10.0 X10*3/uL (4.8-10.8)
[2024-12-26 09:20] LABS: Total Hemoglobin (HGBA1C) 3844.7922 umol/L
[2024-12-26 09:45] LABS: Alanine Aminotransferase 39 U/L (0-31); Albumin Level 4.7 g/dL (3.5-5.0); Alkaline Phosphatase 62 U/L (39-117); Anion Gap 11 (12-20); Aspartate Amino Transferase 25 U/L (5-31); Blood Urea Nitrogen 6 mg/dL (9-16); Calcium 8.9 mg/dL (8.4-10.2); Carbon Dioxide 24 mmol/L (22-29); Chloride 109 mmol/L (96-108); Estimated Glomerular Filt Rate > 60; Potassium 3.8 mmol/L (3.3-5.1); Sodium 140 mmol/L (135-145); Total Protein 7.1 g/dL (6.5-8.0)
== END 2024-12-26 07:49 | disposition home or self-care (01) ==
LOC: HO.LAB 07:48
PROVIDERS: PCP Physician Assistant; Visit Provider Physician Assistant
DX: Z00.00 Encounter for general adult medical examination without abnormal findings (principal); J45.20 Mild intermittent asthma, uncomplicated; E66.811 Obesity, class 1; R73.09 Other abnormal glucose; Z68.30 Body mass index [BMI] 30.0-30.9, adult
CPT/HCPCS: 36415; 80053; 83036; 85027; 96127; 96160

== ENCOUNTER 2025-01-01 07:58 | Outpatient (REF) | payer OTHER, SELFPAY ==
--- NOTE | ~2025-01-01 | MM_ITS ---
EXAMINATION: MM SCREENING DIGITAL BREAST TOMOSYNTHESIS, BILATERAL CLINICAL INFORMATION: Screening. Asymptomatic. COMPARISON: Mammography: Comparison is made with available priors TECHNIQUE: Digital breast mammography with tomosynthesis is performed in both the craniocaudal and mediolateral oblique views along with computer-aided detection (CAD). FINDINGS: The breasts are heterogeneously dense, which may obscure small masses (ACR BI-RADS breast composition Category c). Oval mass upper outer left breast posterior depth stable dating back to 2020. There are no significant masses, abnormal calcifications, or other abnormalities. MM/MM tomosynthesis screening BI IMPRESSION: No mammographic evidence of malignancy. ASSESSMENT: BI-RADS BI-RADS 2 - Benign Findings RECOMMENDATION: Routine annual mammography screening. 1 year F/U This examination should not preclude the clinical evaluation of a suspicious palpable abnormality. This patient's information was entered into a reminder system with a target due date for their next mammogram. Electronically signed by: Lelo Devine DO 01/02/2025 04:40 PM EDT
--- OUTSIDE RECORDS SUMMARY | 2025-01-01 08:03 | XMS_ITS | Patient Health Record ---
Author Organization [employer] [facility] Address [address] [place] [address] Care Team Providers Care Software Client Architect Name Role Phone Rola Sullivan CNM Primary Care Provider Fabiano Petra Mcdaniel Unavailable [phone] Allergies Allergen (clinical drug ingredient) Drug/Non Drug [...] W/U Status Risk Notes Problem Endometrial hyperplasia (477923865) Endometrial hyperplasia, unspecified (N85.00) Active confirmed is being considered Problem Anxiety disorder (231043130) Anxiety disorder, unspecified (F41.9) Active confirmed Problem Status migrainosus (836701779) Migraine, unspecified, not intractable, with status migrainosus (G43.901) Active confirmed Plan Of Treatment No Information Insurance Providers Payer Name Payer Address Payer Phone Subscriber Number Group Number Insured Name Patient Relationship to Insured Coverage Start Date Coverage End Date [facility] [address] [place] [address] [phone] [id number] RADHA MCKENZIE Self - patient is the insured Medical (General) History Medical History History ICD Code Anxiety disorder, unspecified F41.9 Migraine, unspecified, not intractable, with status migrainosus G43.901 Endometrial hyperplasia, unspecified N85 .00 Surgical History Surgery Date(Month/Year) CHOLECYSTECTOMY SUPRACERVICAL HYSTERECTOMY (ovaries silvia in) 2006 ENDOMETRIAL ABLATION 2004 C SECTION
== END 2025-01-01 07:59 | disposition home or self-care (01) ==
LOC: HO.MAMMO 07:58
PROVIDERS: PCP Physician Assistant; Visit Provider Physician Assistant
DX: Z12.31 Encounter for screening mammogram for malignant neoplasm of breast (principal)
CPT/HCPCS: 77063; 77067

== ENCOUNTER → 2025-01-01 08:00 | Outpatient (BNV) | payer OTHER, SELFPAY | PROVIDERS: PCP Physician Assistant; Visit Provider Internal Medicine | DX: Z12.31 Encounter for screening mammogram for malignant neoplasm of breast (principal) | CPT/HCPCS: 77063; 77067 ==